=== PATIENT | male | born 1965 | race Caucasian/White ===

== ENCOUNTER 2022-05-05 12:35 | Inpatient (IN) ==
[2022-05-05] MEDS ORDERED: LORazepam 2 MG/1 ML VIAL IV STA ×3 (13:04→16:56)
[2022-05-05] MEDS ORDERED: MULTI-VITAMIN INFUSION 10 ML, THIAMINE HCL 100 MG, FOLIC ACID 1 MG in SODIUM CHLORIDE 0... IV ONE (13:06)
--- NOTE | 2022-05-05 13:06 | Emergency Department Note ---
Impression & Plan Alcohol withdrawal delirium, Encephalopathy, hypertensive, Alcoholism, chronic ED Provider Note NAME: SAAD GAMA AGE: 56 SEX: M : 1965 ARRIVES VIA: Ambulance INFORMANT: Patient, EMS personnel ED PROVIDER(S): Saad Burnham DO CHIEF COMPLAINT: Altered mental status HPI: The patient is a 56-year-old male who has a reported history of alcohol abuse who presented to the emergency department from [facility]. He was currently at [facility] for inpatient alcohol detox. The patient is very confused. History was obtained from the patient as well as the prehospital personnel. The patient's documentation from [facility] was also evaluated and reviewed. The patient denies having any abdominal pain or chest pain at this time but reportedly he did have abdominal pain prior to arrival. He denies having any trauma. He denies have any lower extremity swelling or pain. The patient was noted to have very high blood pressure. He was treated with Valium prior to arrival. He also takes naltrexone. ROS: See above HPI for pertinent positives & negatives. A total of 10 systems reviewed and were otherwise negative. PAST MEDICAL HISTORY: See Below PAST SURGICAL HISTORY: See Below FAMILY HISTORY: See Below SOCIAL HISTORY: See Below HOME MEDICATIONS: See Below ALLERGIES: See Below VITALS: See Below PHYSICAL EXAMINATION: GENERAL: The patient is obtunded. He appears very uncomfortable. He is rolling around in the bed. He answers questions intermittently. EYES: The conjunctivae are clear. The pupils are round and reactive. EARS, NOSE, MOUTH AND THROAT: The nose is without any evidence of any deformity. Mucous membranes are dry. NECK: The neck is nontender and supple. RESPIRATORY: Shallow respirations were noted. Rales were noted at the bases. CARDIOVASCULAR: Tachycardic and regular heart sounds were noted to auscultation. There is no definite murmur. GASTROINTESTINAL: The abdomen is soft. Abdomen is nontender. MUSCULOSKELETAL/EXTREMITIES: There is no evidence of gross deformity full range of motion is noted in the hips and shoulders. SKIN: Skin was warm and dry. Pedal edema was noted bilaterally. NEUROLOGIC: Patient is obtunded. He answers his name. He is moving all extremities well. He is oriented to person but not place time or situation. MEDICAL DECISION MAKING: The patient is a 56-year-old male who presented to the emergency department from [facility] for an evaluation of altered mental status. The patient's history and physical exam appear to be consistent with alcohol withdrawal. The patient was treated with benzodiazepines in the emergency department. He was also treated with a banana bag. He was treated with antihypertensive medication. I discussed the patient's laboratory and radiographic studies with him but he still continues to have very severe symptoms including hypertensive encephalopathy. He was treated with IV antihypertensive medication. Ultimately the patient was felt to be a better candidate for inpatient management. The [facility] hospitalist was notified about the patient. Triage Nursing notes reviewed. Prior medical records reviewed Vital Signs: reviewed and remarkable for hypertension and tachycardia. Differential diagnosis: Infection, hypoglycemia, electrolyte abnormalities, overdose, toxicologic, cardiac sources, intracerebral event, neurologic, trauma, as well as other pathologies. ER treatment provided: See below Diagnostics interpreted by me: ECG: EKG was obtained in the emergency department. My interpretation is sinus tachycardia 102 bpm. There is no ectopy. QTc was 471 ms. QRS duration was 92 ms. No previous tracing was available. Cardiac Monitoring: An order was placed for continuous cardiac monitoring. The monitor shows a rate of sinus tachycardia 100 bpm. Laboratory studies: As stated above and show below. Imaging studies: See below. Radiographic imaging was reviewed by myself Consultation(s): Dr. Rodriguez was notified about the patient. ED COURSE: Procedures: none Critical Care: I have personally spent greater than 45 minutes of critical care time in the direct management of this patient. This includes bedside care, interpretation of diagnostic studies, and testing, discussion with consultants, patient, and family members, and other required patient management activities. This 45 minutes is in excess of all separately billable procedures. Past Med/Surg History Medical History Alcohol withdrawal syndrome Aneurysm of descending thoracic aorta without rupture Anxiety and depression Chronic alcohol abuse Tobacco abuse Social History Smoking Status: Former smoker Second Hand Exposure: No; Do You Dip or Chew Tobacco: No; Tobacco Cessation Education Requested by Patient: No Hx Alcohol Use: No (In rehab) Hx Substance Use: Yes Last Used Substance: Unknown Preferred Language: Bruneian Communication Ability: Impaired Flight Instructor Required: No Beliefs That Will Affect Care: None Current Living Situation: Rehab Current Living Situation Comment: Patient transferred from [facility] Other Information That Helps Us Care for You: No Feels Safe at Home: Declines to Answer Assistive Devices: None Allergies Allergies Allergy/AdvReac Type Severity Reaction Status Date / Time latex Allergy Unknown Verified 05/05/22 17:51 Penicillins Allergy Unknown Verified 05/05/22 17:51 Home Meds Home Medications Medication Instructions Recorded Confirmed buprenorphine 2 mg-naloxone 0.5 mg 1 film sublingual BID 05/05/22 05/05/22 sublingual film clonidine HCl 0.1 mg tablet 0.1 mg PO TID PRN .LOS 05/05/22 05/05/22 cyanocobalamin (vitamin B-12) 1,000 mcg PO DAILY 05/05/22 05/05/22 1,000 mcg tablet (Vitamin B-12) diazepam 5 mg tablet (Valium) 5 mg PO .NOW 05/05/22 05/05/22 escitalopram oxalate 10 mg tablet 10 mg PO DAILY 05/05/22 05/05/22 (Lexapro) folic acid 1 mg tablet 1 mg PO DAILY 05/05/22 05/05/22 hydroxyzine pamoate 50 mg capsule 50 mg PO TID PRN LOS 05/05/22 05/05/22 (Vistaril) metformin 500 mg tablet 500 mg PO DIRECTED 05/05/22 05/05/22 multivitamin 1 tab PO DAILY 05/05/22 05/05/22 naltrexone 50 mg tablet 50 mg PO DAILY 05/05/22 05/05/22 thiamine HCl (vitamin B1) 100 mg 100 mg PO DAILY 05/05/22 05/05/22 tablet valsartan 80 mg tablet 80 mg PO DAILY 05/05/22 05/05/22 Results & Data (ED) Vital Signs Vital Signs - 24 hr 05/05/22 12:45 05/05/22 12:49 05/05/22 15:24 Temperature 36.9 C Temperature Source Oral Pulse Rate 108 H 105 H Pulse Rate [Right Finger] Pulse Rate from SpO2 Sensor Pulse Rhythm Regular Regular Pulse Rhythm [Right Finger] Pulse Strength Normal Pulse Strength [Right Finger] Respiratory Rate 19 Respiratory Effort / Characteristics Non-Labored Spontaneous Respiratory Depth Normal Respiratory Pattern Blood Pressure 208/134 H Blood Pressure [Right Arm] Blood Pressure Mean 158 Blood Pressure Mean [Right Arm] Blood Pressure Position Lying Pulse Oximetry 99 98 Oxygen Delivery Method Room Air Room Air Sepsis New/Unexplained Change in Mental Status Yes Sepsis Action Taken by Nursing No Action Required 05/05/22 12:48 05/05/22 12:50 05/05/22 13:00 Temperature Temperature Source Pulse Rate 105 H 104 H 107 H Pulse Rate [Right Finger] Pulse Rate from SpO2 Sensor 103 H 105 H 108 H Pulse Rhythm Pulse Rhythm [Right Finger] Pulse Strength Pulse Strength [Right Finger] Respiratory Rate 30 H 27 H 23 Respiratory Effort / Characteristics Respiratory Depth Respiratory Pattern Blood Pressure Blood Pressure [Right Arm] Blood Pressure Mean Blood Pressure Mean [Right Arm] Blood Pressure Position Pulse Oximetry 96 97 98 Oxygen Delivery Method Sepsis New/Unexplained Change in Mental Status Sepsis Action Taken by Nursing 05/05/22 13:10 05/05/22 13:20 05/05/22 13:30 Temperature Temperature Source Pulse Rate 103 H 106 H 102 H Pulse Rate [Right Finger] Pulse Rate from SpO2 Sensor 103 H 105 H 102 H Pulse Rhythm Pulse Rhythm [Right Finger] Pulse Strength Pulse Strength [Right Finger] Respiratory Rate 20 21 18 Respiratory Effort / Characteristics Respiratory Depth Respiratory Pattern Blood Pressure Blood Pressure [Right Arm] Blood Pressure Mean Blood Pressure Mean [Right Arm] Blood Pressure Position Pulse Oximetry 98 97 98 Oxygen Delivery Method Sepsis New/Unexplained Change in Mental Status Sepsis Action Taken by Nursing 05/05/22 13:40 05/05/22 13:50 05/05/22 14:00 Temperature Temperature Source Pulse Rate 103 H 103 H 101 H Pulse Rate [Right Finger] Pulse Rate from SpO2 Sensor 102 H 103 H 99 H Pulse Rhythm Pulse Rhythm [Right Finger] Pulse Strength Pulse Strength [Right Finger] Respiratory Rate 16 22 23 Respiratory Effort / Characteristics Respiratory Depth Respiratory Pattern Blood Pressure Blood Pressure [Right Arm] Blood Pressure Mean Blood Pressure Mean [Right Arm] Blood Pressure Position Pulse Oximetry 96 95 96 Oxygen Delivery Method Sepsis New/Unexplained Change in Mental Status Sepsis Action Taken by Nursing 05/05/22 14:10 05/05/22 14:20 05/05/22 14:30 Temperature Temperature Source Pulse Rate Pulse Rate [Right Finger] Pulse Rate from SpO2 Sensor 102 H 103 H Pulse Rhythm Pulse Rhythm [Right Finger] Pulse Strength Pulse Strength [Right Finger] Respiratory Rate 33 H 21 26 H Respiratory Effort / Characteristics Respiratory Depth Respiratory Pattern Blood Pressure Blood Pressure [Right Arm] Blood Pressure Mean Blood Pressure Mean [Right Arm] Blood Pressure Position Pulse Oximetry 96 96 Oxygen Delivery Method Sepsis New/Unexplained Change in Mental Status Sepsis Action Taken by Nursing 05/05/22 14:34 05/05/22 14:34 05/05/22 15:15 Temperature Temperature Source Pulse Rate Pulse Rate [Right Finger] Pulse Rate from SpO2 Sensor Pulse Rhythm Pulse Rhythm [Right Finger] Pulse Strength Pulse Strength [Right Finger] Respiratory Rate 20 Respiratory Effort / Characteristics Respiratory Depth Respiratory Pattern Blood Pressure 197/140 H 173/114 H Blood Pressure [Right Arm] Blood Pressure Mean 159 133 Blood Pressure Mean [Right Arm] Blood Pressure Position Pulse Oximetry Oxygen Delivery Method Sepsis New/Unexplained Change in Mental Status Sepsis Action Taken by Nursing 05/05/22 15:20 05/05/22 15:30 05/05/22 15:40 Temperature Temperature Source Pulse Rate 103 H Pulse Rate [Right Finger] Pulse Rate from SpO2 Sensor 105 H Pulse Rhythm Pulse Rhythm [Right Finger] Pulse Strength Pulse Strength [Right Finger] Respiratory Rate 24 18 Respiratory Effort / Characteristics Respiratory Depth Respiratory Pattern Blood Pressure 193/140 H Blood Pressure [Right Arm] Blood Pressure Mean 157 Blood Pressure Mean [Right Arm] Blood Pressure Position Pulse Oximetry 99 Oxygen Delivery Method Sepsis New/Unexplained Change in Mental Status Sepsis Action Taken by Nursing 05/05/22 15:40 05/05/22 15:45 05/05/22 15:45 Temperature Temperature Source Pulse Rate 105 H 100 H Pulse Rate [Right Finger] Pulse Rate from SpO2 Sensor 103 H 108 H Pulse Rhythm Pulse Rhythm [Right Finger] Pulse Strength Pulse Strength [Right Finger] Respiratory Rate 31 H 20 Respiratory Effort / Characteristics Respiratory Depth Respiratory Pattern Blood Pressure 192/154 H Blood Pressure [Right Arm] Blood Pressure Mean 166 Blood Pressure Mean [Right Arm] Blood Pressure Position Pulse Oximetry 97 95 Oxygen Delivery Method Sepsis New/Unexplained Change in Mental Status Sepsis Action Taken by Nursing 05/05/22 15:50 05/05/22 15:55 05/05/22 15:55 Temperature Temperature Source Pulse Rate 105 H 104 H Pulse Rate [Right Finger] Pulse Rate from SpO2 Sensor 106 H 103 H Pulse Rhythm Pulse Rhythm [Right Finger] Pulse Strength Pulse Strength [Right Finger] Respiratory Rate 13 17 Respiratory Effort / Characteristics Respiratory Depth Respiratory Pattern Blood Pressure 181/129 H Blood Pressure [Right Arm] Blood Pressure Mean 146 Blood Pressure Mean [Right Arm] Blood Pressure Position Pulse Oximetry 97 99 Oxygen Delivery Method Sepsis New/Unexplained Change in Mental Status Sepsis Action Taken by Nursing 05/05/22 16:00 05/05/22 16:10 05/05/22 16:17 Temperature Temperature Source Pulse Rate 105 H 104 H Pulse Rate [Right Finger] Pulse Rate from SpO2 Sensor 105 H 103 H Pulse Rhythm Pulse Rhythm [Right Finger] Pulse Strength Pulse Strength [Right Finger] Respiratory Rate 17 16 Respiratory Effort / Characteristics Respiratory Depth Respiratory Pattern Blood Pressure 180/132 H Blood Pressure [Right Arm] Blood Pressure Mean 148 Blood Pressure Mean [Right Arm] Blood Pressure Position Pulse Oximetry 98 98 Oxygen Delivery Method Sepsis New/Unexplained Change in Mental Status Sepsis Action Taken by Nursing 05/05/22 16:17 05/05/22 16:20 05/05/22 14:44 Temperature 36.8 C Temperature Source Oral Pulse Rate 97 H 100 H Pulse Rate [Right Finger] 103 H Pulse Rate from SpO2 Sensor 97 H 100 H Pulse Rhythm Pulse Rhythm [Right Finger] Regular Pulse Strength Pulse Strength [Right Finger] Normal Respiratory Rate 16 13 19 Respiratory Effort / Characteristics Non-Labored Spontaneous Respiratory Depth Normal Respiratory Pattern Regular Blood Pressure Blood Pressure [Right Arm] 219/130 H Blood Pressure Mean Blood Pressure Mean [Right Arm] 159 Blood Pressure Position Pulse Oximetry 99 99 98 Oxygen Delivery Method Room Air Sepsis New/Unexplained Change in Mental Status Sepsis Action Taken by Nursing 05/05/22 16:51 Temperature Temperature Source Pulse Rate 102 H Pulse Rate [Right Finger] Pulse Rate from SpO2 Sensor Pulse Rhythm Pulse Rhythm [Right Finger] Pulse Strength Pulse Strength [Right Finger] Respiratory Rate Respiratory Effort / Characteristics Respiratory Depth Respiratory Pattern Blood Pressure Blood Pressure [Right Arm] Blood Pressure Mean Blood Pressure Mean [Right Arm] Blood Pressure Position Pulse Oximetry Oxygen Delivery Method Sepsis New/Unexplained Change in Mental Status Sepsis Action Taken by [facility] Medications Current Medication List: was personally reviewed by la Laboratory Data Attestation: I reviewed the patient's lab results. 05/05/22 12:50 05/05/22 12:50 Lab Results 05/05/22 05/05/22 05/05/22 Range/Units 12:50 12:50 12:50 WBC 9.10 (4.8-10.8) K/ul RBC 4.28 L (4.70-6.10) M/uL Hgb 14.0 (14.0-18.0) g/dl Hct 41.0 L (42.0-52.0) % MCV 95.8 (80.0-100.0) fL MCH 32.7 (25.0-34.0) pg MCHC 34.1 (32.0-36.0) g/dL RDW Std Deviation 44.1 (36.4-46.3) fL RDW Coeff of Josiah 12.5 (11.5-14.5) % Plt Count 274 (130-400) K/uL MPV 10.8 (9.4-12.4) fL Immature Gran % (Auto) 0.4 % Neut % (Auto) 77.8 % Lymph % (Auto) 12.3 % [place] % (Auto) 7.3 % Eos % (Auto) 0.8 % Baso % (Auto) 1.4 % Neut # (Auto) 7.08 H (1.40-6.50) K/uL Lymph # (Auto) 1.12 L (1.2-3.4) K/uL [place] # (Auto) 0.66 H (0.11-0.59) K/uL Eos # (Auto) 0.07 (0-0.50) K/uL Baso # (Auto) 0.13 (0-0.2) K/uL Immature Gran # (Auto) 0.04 (0.01-0.20) K/uL PT 10.6 (9.0-12.0) Seconds INR 1.0 (0.9-1.1) APTT 27.2 (21.0-31.0) Seconds PTT Ratio 1.0 Sodium 141 (136-145) mmol/L Potassium 3.9 (3.5-5.1) mmol/L Chloride 106 (98-107) mmol/L Carbon Dioxide 30 (21-32) mmol/L Anion Gap 5 (3-11) BUN 14 (6-23) mg/dl Creatinine 0.99 (0.6-1.4) mg/dl Est Cr Clr Drug Dosing 101.3 ml/min Est GFR ( Amer) 97.6 ml/min Est GFR (Non-Af Amer) 84.2 ml/min BUN/Creatinine Ratio 14.1 (10-20) Glucose 169 H (70-99(Fasting)) mg/dl POC Glucose (70-99) mg/dl Calcium 9.8 (8.5-10.1) mg/dl Magnesium 2.0 (1.7-2.4) mg/dl Total Bilirubin 0.4 (0.2-1.0) mg/dl AST 34 (13-39) U/L ALT 44 (7-52) U/L Alkaline Phosphatase 89 (34-104) U/L Total Creatine Kinase 74 (30-223) U/L Troponin I High Sens 9.3 (0-20) pg/ml Total Protein 7.8 (6.0-8.3) gm/dl Albumin 4.3 (3.4-5.0) gm/dl Globulin 3.5 (2.5-4.0) gm/dl Albumin/Globulin Ratio 1.2 (0.9-2) Lipase 36 (11-82) U/L Urine Color Urine Appearance (Clear) Urine pH (4.5-7.5) Ur Specific [place] (1.000-1.030) Urine Protein (Negative) Urine Glucose (UA) (Negative) Urine Ketones (Negative) Urine Blood (Negative) Urine Nitrite (Negative) Urine Bilirubin (Negative) Urine Urobilinogen (Negative) Ur Leukocyte Esterase (Negative) Urine WBC (Auto) (0-5) /hpf Urine RBC (Auto) (0-4) /hpf U Hyaline Cast (Auto) (0-5) /lpf U Epithel Cells (Auto) (0-5) /lpf Urine Bacteria (Auto) (Negative) Salicylates (3.0-30) mg/dl Urine Opiates Screen (Neg) Ur Methadone, Qual (Neg) Acetaminophen (10-30) ug/ml Urine Barbiturates (Neg) Ur Phencyclidine (PCP) (Neg) U Amphetamin/Meth Scrn (Neg) MDMA (Ecstasy) Screen (Neg) U Benzodiazepines Scrn (Neg) Ur Cocaine Metabolite (Neg) U Marijuana (THC) Screen (Neg) Ethyl Alcohol mg/dL (<10.0) mg/dl SARS-CoV-2, RNA, NAAT (NEGATIVE) 05/05/22 05/05/22 05/05/22 Range/Units 12:50 12:50 12:55 WBC (4.8-10.8) K/ul RBC (4.70-6.10) M/uL Hgb (14.0-18.0) g/dl Hct (42.0-52.0) % MCV (80.0-100.0) fL MCH (25.0-34.0) pg MCHC (32.0-36.0) g/dL RDW Std Deviation (36.4-46.3) fL RDW Coeff of Josiah (11.5-14.5) % Plt Count (130-400) K/uL MPV (9.4-12.4) fL Immature Gran % (Auto) % Neut % (Auto) % Lymph % (Auto) % [place] % (Auto) % Eos % (Auto) % Baso % (Auto) % Neut # (Auto) (1.40-6.50) K/uL Lymph # (Auto) (1.2-3.4) K/uL [place] # (Auto) (0.11-0.59) K/uL Eos # (Auto) (0-0.50) K/uL Baso # (Auto) (0-0.2) K/uL Immature Gran # (Auto) (0.01-0.20) K/uL PT (9.0-12.0) Seconds INR (0.9-1.1) APTT (21.0-31.0) Seconds PTT Ratio Sodium (136-145) mmol/L Potassium (3.5-5.1) mmol/L Chloride (98-107) mmol/L Carbon Dioxide (21-32) mmol/L Anion Gap (3-11) BUN (6-23) mg/dl Creatinine (0.6-1.4) mg/dl Est Cr Clr Drug Dosing ml/min Est GFR ( Amer) ml/min Est GFR (Non-Af Amer) ml/min BUN/Creatinine Ratio (10-20) Glucose (70-99(Fasting)) mg/dl POC Glucose 166 H (70-99) mg/dl Calcium (8.5-10.1) mg/dl Magnesium (1.7-2.4) mg/dl Total Bilirubin (0.2-1.0) mg/dl AST (13-39) U/L ALT (7-52) U/L Alkaline Phosphatase (34-104) U/L Total Creatine Kinase (30-223) U/L Troponin I High Sens (0-20) pg/ml Total Protein (6.0-8.3) gm/dl Albumin (3.4-5.0) gm/dl Globulin (2.5-4.0) gm/dl Albumin/Globulin Ratio (0.9-2) Lipase (11-82) U/L Urine Color Urine Appearance (Clear) Urine pH (4.5-7.5) Ur Specific [place] (1.000-1.030) Urine Protein (Negative) Urine Glucose (UA) (Negative) Urine Ketones (Negative) Urine Blood (Negative) Urine Nitrite (Negative) Urine Bilirubin (Negative) Urine Urobilinogen (Negative) Ur Leukocyte Esterase (Negative) Urine WBC (Auto) (0-5) /hpf Urine RBC (Auto) (0-4) /hpf U Hyaline Cast (Auto) (0-5) /lpf U Epithel Cells (Auto) (0-5) /lpf Urine Bacteria (Auto) (Negative) Salicylates < 3.0 L (3.0-30) mg/dl Urine Opiates Screen (Neg) Ur Methadone, Qual (Neg) Acetaminophen < 3 L (10-30) ug/ml Urine Barbiturates (Neg) Ur Phencyclidine (PCP) (Neg) U Amphetamin/Meth Scrn (Neg) MDMA (Ecstasy) Screen (Neg) U Benzodiazepines Scrn (Neg) Ur Cocaine Metabolite (Neg) U Marijuana (THC) Screen (Neg) Ethyl Alcohol mg/dL < 10.0 (<10.0) mg/dl SARS-CoV-2, RNA, NAAT (NEGATIVE) 05/05/22 05/05/22 05/05/22 Range/Units 13:30 15:20 15:20 WBC (4.8-10.8) K/ul RBC (4.70-6.10) M/uL Hgb (14.0-18.0) g/dl Hct (42.0-52.0) % MCV (80.0-100.0) fL MCH (25.0-34.0) pg MCHC (32.0-36.0) g/dL RDW Std Deviation (36.4-46.3) fL RDW Coeff of Josiah (11.5-14.5) % Plt Count (130-400) K/uL MPV (9.4-12.4) fL Immature Gran % (Auto) % Neut % (Auto) % Lymph % (Auto) % [place] % (Auto) % Eos % (Auto) % Baso % (Auto) % Neut # (Auto) (1.40-6.50) K/uL Lymph # (Auto) (1.2-3.4) K/uL [place] # (Auto) (0.11-0.59) K/uL Eos # (Auto) (0-0.50) K/uL Baso # (Auto) (0-0.2) K/uL Immature Gran # (Auto) (0.01-0.20) K/uL PT (9.0-12.0) Seconds INR (0.9-1.1) APTT (21.0-31.0) Seconds PTT Ratio Sodium (136-145) mmol/L Potassium (3.5-5.1) mmol/L Chloride (98-107) mmol/L Carbon Dioxide (21-32) mmol/L Anion Gap (3-11) BUN (6-23) mg/dl Creatinine (0.6-1.4) mg/dl Est Cr Clr Drug Dosing ml/min Est GFR ( Amer) ml/min Est GFR (Non-Af Amer) ml/min BUN/Creatinine Ratio (10-20) Glucose (70-99(Fasting)) mg/dl POC Glucose (70-99) mg/dl Calcium (8.5-10.1) mg/dl Magnesium (1.7-2.4) mg/dl Total Bilirubin (0.2-1.0) mg/dl AST (13-39) U/L ALT (7-52) U/L Alkaline Phosphatase (34-104) U/L Total Creatine Kinase (30-223) U/L Troponin I High Sens (0-20) pg/ml Total Protein (6.0-8.3) gm/dl Albumin (3.4-5.0) gm/dl Globulin (2.5-4.0) gm/dl Albumin/Globulin Ratio (0.9-2) Lipase (11-82) U/L Urine Color Yellow Urine Appearance Cloudy A (Clear) Urine pH 6.5 (4.5-7.5) Ur Specific [place] 1.011 (1.000-1.030) Urine Protein Negative (Negative) Urine Glucose (UA) Negative (Negative) Urine Ketones Trace H (Negative) Urine Blood Negative (Negative) Urine Nitrite Negative (Negative) Urine Bilirubin Negative (Negative) Urine Urobilinogen Negative (Negative) Ur Leukocyte Esterase Negative (Negative) Urine WBC (Auto) 1-5 (0-5) /hpf Urine RBC (Auto) 0-4 (0-4) /hpf U Hyaline Cast (Auto) 1-5 (0-5) /lpf U Epithel Cells (Auto) 0-5 (0-5) /lpf Urine Bacteria (Auto) Negative (Negative) Salicylates (3.0-30) mg/dl Urine Opiates Screen Neg (Neg) Ur Methadone, Qual Neg (Neg) Acetaminophen (10-30) ug/ml Urine Barbiturates Neg (Neg) Ur Phencyclidine (PCP) Neg (Neg) U Amphetamin/Meth Scrn Neg (Neg) MDMA (Ecstasy) Screen Neg (Neg) U Benzodiazepines Scrn Pos H (Neg) Ur Cocaine Metabolite Neg (Neg) U Marijuana (THC) Screen Neg (Neg) Ethyl Alcohol mg/dL (<10.0) mg/dl SARS-CoV-2, RNA, NAAT NEGATIVE (NEGATIVE) Administered Medications Enoxaparin Sodium (Enoxaparin Inj 40 Mg/0.4 Ml Syr) 40 mg SQ QPM [facility] Stop: 06/04/22 22:29 Last Admin: 05/05/22 23:33 Dose: Not Given Documented By: ALBERTO Hydralazine HCl (Hydralazine Hcl 20 Mg/Ml Vial) 10 mg IV Q4H PRN PRN Reason: sBP > 160 Stop: 06/04/22 20:40 Last Admin: 05/06/22 04:00 Dose: 10 mg Documented By: ALBERTO Lactated Ringer's (Lr) 1,000 mls @ 125 mls/hr IV .Q8H [facility] Stop: 06/04/22 20:44 Last Admin: 05/06/22 05:47 Dose: 125 mls/hr Documented By: Infusion: 05/06/22 05:38 Dose: 125 mls/hr Documented By: Admin: 05/05/22 21:38 Dose: 125 mls/hr Documented By: ALBERTO Thiamine HCl 500 mg/ Sodium (Chloride) 55 mls @ 210 mls/hr IV Q8H [facility] Stop: 05/07/22 21:14 Last Infusion: 05/06/22 05:26 Dose: 0 mls/hr Documented By: Admin: 05/06/22 04:41 Dose: 210 mls/hr Documented By: Infusion: 05/05/22 22:01 Dose: 0 mls/hr Documented By: Admin: 05/05/22 21:40 Dose: 210 mls/hr Documented By: ALBERTO Insulin Aspart (Insulin Aspart Per Unit) 0 units SC Q6 [facility] Stop: 06/05/22 00:00 Last Admin: 05/06/22 06:39 Dose: 1 units Documented By: ALBERTO Co-signed By: BRYNN Admin: 05/06/22 00:03 Dose: 1 units Documented By: ALBERTO Co-signed By: BRYNN(2) Lorazepam (Lorazepam 2 Mg/1 Ml Vial) 1 mg IV Q4H PRN PRN Reason: Anxiety/Agitation Stop: 06/04/22 22:46 Last Admin: 05/06/22 05:50 Dose: 1 mg Documented By: Admin: 05/05/22 23:45 Dose: 1 mg Documented By: ALBERTO Discontinued Medications Hydralazine HCl (Hydralazine Hcl 20 Mg/Ml Vial) 10 mg IV NOW STA Stop: 05/05/22 14:33 Last Admin: 05/05/22 15:18 Dose: 10 mg Documented By: BEAR Sodium Chloride (Nss 1000ml) 1,000 mls @ 999 mls/hr IV .Q1H1M [facility] Stop: 05/05/22 14:15 Last Infusion: 05/05/22 16:42 Dose: 0 mls/hr Documented By: Admin: 05/05/22 14:00 Dose: 999 mls/hr Documented By: BEAR Multivitamins 10 ml/ Thiamine HCl 100 mg/ Folic Acid 1 mg/Sodium Chloride 1,011.2 mls @ 1,011.2 mls/hr IV .Q1H ONE Stop: 05/05/22 14:05 Last Infusion: 05/05/22 16:42 Dose: 0 mls/hr Documented By: Admin: 05/05/22 13:41 Dose: 1,011.2 mls/hr Documented By: BEAR Nicardipine HCl 25 mg/ Sodium (Chloride) 250 mls @ 75 mls/hr IV .Q3H20M ALMA; Protocol Stop: 06/04/22 15:59 Last Titration: 05/05/22 19:56 Dose: 0 mg/hr, 0 mls/hr Documented By: Titration: 05/05/22 16:47 Dose: 7.5 mg/hr, 75 mls/hr Documented By: Admin: 05/05/22 16:23 Dose: 5 mg/hr, 50 mls/hr Documented By: BEAR Co-signed By: CARLOS Thiamine HCl 500 mg/ Sodium (Chloride) 55 mls @ 210 mls/hr IV NOW STA Stop: 05/05/22 17:30 Last Infusion: 05/05/22 19:08 Dose: 0 mls/hr Documented By: Admin: 05/05/22 18:47 Dose: 210 mls/hr Documented By: BEAR Nicardipine HCl 25 mg/ Sodium (Chloride) 250 mls @ 50 mls/hr IV .Q5H ALMA; Protocol Stop: 06/04/22 18:14 Last Admin: 05/05/22 18:55 Dose: Not Given Documented By: BEAR Influenza Virus Vaccine Quadrival (Fluarix Quadrivalent 0.5 Ml Syr) 0.5 ml IM .ONCE ONE Stop: 05/05/22 20:34 Last Admin: 05/05/22 20:43 Dose: Not Given Documented By: ALBERTO Labetalol HCl (Labetalol Hcl Iv 5 Mg/Ml 20ml) 10 mg IV NOW STA Stop: 05/05/22 17:33 Last Admin: 05/05/22 17:58 Dose: 10 mg Documented By: PIERCE Co-signed By: BEAR Lorazepam (Lorazepam 2 Mg/1 Ml Vial) 1 mg IV NOW STA Stop: 05/05/22 13:05 Last Admin: 05/05/22 13:19 Dose: 1 mg Documented By: BEAR Lorazepam (Lorazepam 2 Mg/1 Ml Vial) 1 mg IV NOW STA Stop: 05/05/22 14:33 Last Admin: 05/05/22 15:20 Dose: 1 mg Documented By: BEAR Lorazepam (Lorazepam 2 Mg/1 Ml Vial) 1 mg IV NOW STA Stop: 05/05/22 16:57 Last Admin: 05/05/22 17:12 Dose: 1 mg Documented By: BEAR Imaging Data Radiologist's Impression: Abdomen/Pelvis CT 05/05/22 13:04 CT SCAN OF THE ABDOMEN AND PELVIS WITHOUT IV CONTRAST CLINICAL HISTORY: Generalized abdominal pain. COMPARISON STUDY: No priors. TECHNIQUE: CT scan of the abdomen and pelvis is performed from the lung bases to the proximal femora. Images are reviewed in the axial, sagittal, and coronal planes. IV contrast was not administered for this examination as per the referring clinician. Note that the examination was performed and significantly suboptimal fashion without oral and IV contrast. The examination is also significantly degraded by motion artifact, as well as by streak artifact from the arms which could not be elevated above the abdomen. The patient was scanned twice in an effort to improve image quality. A dose lowering technique was utilized adhering to the principles of ALARA. CT DOSE: 2341.07 mGycm FINDINGS: Lung bases: The heart is normal in size and without pericardial effusion. The pulmonary arteries are densely calcified. The lung bases are clear. A small hiatal hernia is noted. Liver: The unenhanced liver is enlarged, measuring 21.7 cm in length. The liver demonstrates diffuse decreased attenuation indicating steatosis. Fatty sparing is seen adjacent to the gallbladder fossa. There is no intrahepatic biliary ductal dilatation. Gallbladder: Unremarkable. Spleen: Normal in size and attenuation. Pancreas: Unremarkable. Adrenal glands: Unremarkable. Kidneys: The unenhanced kidneys are normal in size and without hydronephrosis. There are no renal calculi identified. There is no evidence of contour deforming renal mass lesion. Abdominal vasculature: There is mild/moderate atherosclerotic calcification and ectasia of the abdominal aorta. Bowel: There is no bowel obstruction. Mild inflammatory changes seen around the small bowel loops and there is trace interloop fluid. No pneumatosis intestinalis or portal venous gas is identified. The appendix is well- visualized and normal. Peritoneum: There is trace perihepatic ascites, as well as trace free fluid in the pelvis. No intraperitoneal free air is seen. There is a fat-containing umbilical hernia. Lymphadenopathy: None. Pelvic viscera: The prostate gland is mildly enlarged and heterogeneous. The bladder is distended but otherwise normal in appearance. Skeletal structures: There is mild lumbosacral spondylosis and scoliosis. No lytic or blastic lesions are seen. Sclerotic change is noted in the sacroiliac joints. IMPRESSION: 1. Significantly suboptimal examination without oral and IV contrast. The examination is also significantly degraded by streak and motion artifact. 2. Inflammatory change is seen around the small bowel loops with trace interloop fluid. The appearance suggests a nonspecific enteritis and clinical correlation required. 3. There is no bowel obstruction. 4. No intraperitoneal free air is seen. There is no pneumatosis intestinalis or portal venous gas. 5. Trace abdominopelvic ascites. 6. Hepatomegaly and hepatic steatosis. 7. Advanced coronary artery calcification. 8. Bladder distention. 9. Additional findings as above. ACT 112: Negative or not required by law. Electronically signed by: Mak Baeza M.D. 05/05/2022 3:22 PM Chest X-Ray 05/05/22 13:04 XR chest 1V portable CLINICAL HISTORY: Altered mental status. COMPARISON STUDY: No previous studies for comparison. FINDINGS: No pneumothorax or pleural effusion is noted. Mild cardiomegaly without evidence for pulmonary edema. No consolidation is identified. Patient is mildly rotated. IMPRESSION: No acute cardiopulmonary findings. ACT 112: Negative or not required by law. Electronically signed by: Cornelio Palencia M.D. 05/05/2022 2:[address] 05/05/22 13:04 CT head/brain wo con CLINICAL HISTORY: 56 years-old Male with vbg. Acute dizziness TECHNIQUE: Multiple axial CT images of the head were obtained without contrast. A dose lowering technique was utilized adhering to the principles of ALARA. CT DOSE: 1812.68 mGycm COMPARISON: None. FINDINGS: No acute intracranial hemorrhage, midline shift, intracranial mass, hydrocephalus, territorial ischemia or abnormal extra-axial collection. Motion degraded exam. The calvarium is intact. The paranasal sinuses, mastoid air cells, and middle ear cavities are clear. IMPRESSION: No acute intracranial abnormality identified. ACT 112: Negative or not required by law. The above report was generated using voice recognition software. It may contain grammatical, syntax or spelling errors. Electronically signed by: Amilcar Marino M.D. 05/05/2022 3:09 PM Discharge Plan Visit Data Chief Complaint: Altered Mental Status Stated Complaint: CONFUSION ED Provider: Saad Burnham Discharge Problem: Alcohol withdrawal delirium, Encephalopathy, hypertensive, Alcoholism, chronic Patient Disposition: Admitted As Inpatient Discharge Instructions Interventions: ED Discharge Assessment Last Done: 05/05/22 18:54
[2022-05-05] MEDS ORDERED: SODIUM CHLORIDE 0.9% 1000ML 1,000 ML IV SCH (13:15)
[2022-05-05 13:36] LABS: Basophils # (auto) 0.13 K/uL (0-0.2); Basophils % (auto) 1.4 %; Eosinophils # (auto) 0.07 K/uL (0-0.50); Eosinophils % (auto) 0.8 %; Immature Granulocytes # (auto) 0.04 K/uL (0.01-0.20); Immature Granulocytes % (auto) 0.4 %; Lymphocytes # (auto) 1.12 K/uL (1.2-3.4); Lymphocytes % (auto) 12.3 %; Mean Corpuscular Hemoglobin 32.7 pg (25.0-34.0); Mean Corpuscular Hgb Conc 34.1 g/dL (32.0-36.0); Mean Corpuscular Volume 95.8 fL (80.0-100.0); Mean Platelet Volume 10.8 fL (9.4-12.4); Monocytes # (auto) 0.66 K/uL (0.11-0.59); Monocytes % (auto) 7.3 %; Neutrophils # (auto) 7.08 K/uL (1.40-6.50); Neutrophils % (auto) 77.8 %; Platelet Count 274 K/uL (130-400); RDW Coefficient of Variation 12.5 % (11.5-14.5); RDW Standard Deviation 44.1 fL (36.4-46.3); Red Blood Count 4.28 M/uL (4.70-6.10)
[2022-05-05 13:51] LABS: Albumin Globulin Ratio 1.2 (0.9-2); Albumin Level 4.3 gm/dl (3.4-5.0); BUN Creatinine Ratio 14.1 (10-20); Bilirubin,Total 0.4 mg/dl (0.2-1.0); Calcium 9.8 mg/dl (8.5-10.1); Creatinine Clr Calc Pharmacy 101.3 ml/min; Est GFR (African American) 97.6 ml/min; Est GFR (Non-African American) 84.2 ml/min; Globulin 3.5 gm/dl (2.5-4.0); Potassium 3.9 mmol/L (3.5-5.1); Total Protein 7.8 gm/dl (6.0-8.3)
[2022-05-05 13:52] LABS: Acetaminophen < 3 ug/ml (10-30); Salicylate < 3.0 mg/dl (3.0-30)
[2022-05-05 13:55] LABS: Troponin I High Sensitivity 9.3 pg/ml (0-20)
[2022-05-05 14:05] LABS: Partial Thromboplastin Time 27.2 Seconds (21.0-31.0); Prothrombin Time 10.6 Seconds (9.0-12.0)
--- NOTE | 2022-05-05 14:23 | XRay Report ---
XR chest 1V portable CLINICAL HISTORY: Altered mental status. COMPARISON STUDY: No previous studies for comparison. FINDINGS: No pneumothorax or pleural effusion is noted. Mild cardiomegaly without evidence for pulmon lisa edema. No consolidation is identified. Patient is mildly rotated. IMPRESSION: No acute cardiopulmonary findings. ACT 112: Negative or not required by law. Electronically signed by: Cornelio Palencia M.D. 05/05/2022 2:21 PM
[2022-05-05] MEDS ORDERED: hydrALAZINE HCL 20 MG/ML VIAL IV STA (14:32)
--- NOTE | 2022-05-05 15:10 | CT Scan Report ---
CT head/brain wo con CLINICAL HISTORY: 56 years-old Male with vbg. Acute dizziness TECHNIQUE: Multiple axial CT images of the head were obtained without contrast. A dose lowering tech nique was utilized adhering to the principles of ALARA. CT DOSE: 1812.68 mGycm COMPARISON: None. FINDINGS: No acute intracranial hemorrhage, midline shift, intracranial mass, hydrocephalus, territorial ischem ia or abnormal extra-axial collection. Motion degraded exam. The calvarium is intact. The paranasal sinuses, mastoid air cells, and middle ear cavities are clear . IMPRESSION: No acute intracranial abnormality identified. ACT 112: Negative or not required by law. The above report was generated using voice recognition software. It may contain grammatical, syntax o r spelling errors. Electronically signed by: Amilcar Marino M.D. 05/05/2022 3:09 PM
--- NOTE | 2022-05-05 15:23 | CT Scan Report ---
CT SCAN OF THE ABDOMEN AND PELVIS WITHOUT IV CONTRAST CLINICAL HISTORY: Generalized abdominal pain. COMPARISON STUDY: No priors. TECHNIQUE: CT scan of the abdomen and pelvis is performed from the lung bases to the proximal femora. Images are reviewed in the axial, sagittal, and coronal planes. IV contrast was not administered for this examination as per the referring clinician. Note that the examination was performed and signifi cantly suboptimal fashion without oral and IV contrast. The examination is also significantly degrade d by motion artifact, as well as by streak artifact from the arms which could not be elevated above t he abdomen. The patient was scanned twice in an effort to improve image quality. A dose lowering tech nique was utilized adhering to the principles of ALARA. CT DOSE: 2341.07 mGycm FINDINGS: Lung bases: The heart is normal in size and without pericardial effusion. The pulmonary arteries are densely calcified. The lung bases are clear. A small hiatal hernia is noted. Liver: The unenhanced liver is enlarged, measuring 21.7 cm in length. The liver demonstrates diffuse decreased attenuation indicating steatosis. Fatty sparing is seen adjacent to the gallbladder fossa. There is no intrahepatic biliary ductal dilatation. Gallbladder: Unremarkable. Spleen: Normal in size and attenuation. Pancreas: Unremarkable. Adrenal glands: Unremarkable. Kidneys: The unenhanced kidneys are normal in size and without hydronephrosis. There are no renal jake culi identified. There is no evidence of contour deforming renal mass lesion. Abdominal vasculature: There is mild/moderate atherosclerotic calcification and ectasia of the abdomi nal aorta. Bowel: There is no bowel obstruction. Mild inflammatory changes seen around the small bowel loops and there is trace interloop fluid. No pneumatosis intestinalis or portal venous gas is identified. The appendix is well-visualized and normal. Peritoneum: There is trace perihepatic ascites, as well as trace free fluid in the pelvis. No intrape ritoneal free air is seen. There is a fat-containing umbilical hernia. Lymphadenopathy: None. Pelvic viscera: The prostate gland is mildly enlarged and heterogeneous. The bladder is distended but otherwise normal in appearance. Skeletal structures: There is mild lumbosacral spondylosis and scoliosis. No lytic or blastic lesions are seen. Sclerotic change is noted in the sacroiliac joints. IMPRESSION: 1. Significantly suboptimal examination without oral and IV contrast. The examination is also signifi cantly degraded by streak and motion artifact. 2. Inflammatory change is seen around the small bowel loops with trace interloop fluid. The appearanc e suggests a nonspecific enteritis and clinical correlation required. 3. There is no bowel obstruction. 4. No intraperitoneal free air is seen. There is no pneumatosis intestinalis or portal venous gas. 5. Trace abdominopelvic ascites. 6. Hepatomegaly and hepatic steatosis. 7. Advanced coronary artery calcification. 8. Bladder distention. 9. Additional findings as above. ACT 112: Negative or not required by law. Electronically signed by: Mak Baeza M.D. 05/05/2022 3:22 PM
[2022-05-05 15:53] LABS: Appearance Urine Cloudy (Clear); Bacteria Urine Automated Negative (Negative); Bilirubin Urine Negative (Negative); Blood Urine Negative (Negative); Color Urine Yellow; Epithelial Cell Urine Auto 0-5 /lpf (0-5); Glucose Urine UA Negative (Negative); Ketones Urine Trace (Negative); Leukocyte Esterase Urine Negative (Negative); Nitrite Urine Negative (Negative); Protein Urine Negative (Negative); RBC Urine Automated 0-4 /hpf (0-4); Specific Gravity Urine 1.011 (1.000-1.030); Urobilinogen Urine Negative (Negative); pH Urine 6.5 (4.5-7.5)
[2022-05-05] MEDS ORDERED: STAT IV Infusion **Titration per Protocol STA ×2 (15:54→18:09)
[2022-05-05] MEDS ORDERED: niCARdipine 25 MG in SODIUM CHLORIDE 0.9% 240 ML IV SCH ×2 (16:00→18:15)
[2022-05-05 16:16] LABS: Amphetamines+Metham, Urine Neg (Neg); Barbiturates, Urine Neg (Neg); Benzodiazepine, Urine Pos (Neg); Cocaine, Urine Neg (Neg); MDMA (Ecstacy), Urine Neg (Neg); Methadone, Urine Neg (Neg); Opiate, Urine Neg (Neg); Phencyclidine, Urine Neg (Neg)
--- NOTE | 2022-05-05 17:12 | History & Physical Report ---
Date of Service May 05, 2022 Assessment & Plan (1) Altered mental status: Plan: Unclear cause Ammonia level and ABG pending Possible opiate withdrawal Less likely alcohol withdrawal given he was transferred from another hospital to [facility] on May 03 although records from this visit are pending ?alternative substance ingestion such as bath salts that does not appear on urine toxicology If blood pressure able to be controlled without nicardipine can be admitted to PCU (2) Encephalopathy, hypertensive: Plan: Stop nicardipine as infusion cannot be given outside of the ICU. Will give labetalol 10mg IV repeated doses until controlled. Hydralazine q4h 10mg PRN for sBP > 180 or sBP > 110 (3) Hypertension: Plan: Reportedly on valsartan 80 mg p.o. daily. Currently will hold in favor of shorter acting intravenous medications as above for hypertensive encephalopathy. (4) Alcoholism, chronic: (5) Anxiety and depression: Plan: Hold Lexapro pending improvement in mental status. Low suspicion of serotonin syndrome on current medication. (6) Chronic prescription opiate use: Plan: Suboxone listed on outpatient medications. Unclear history of this but appears to have been reduced in February per PDMP.. Plan VTE prophylaxis -Lovenox 40 mg subcu daily Diet -n.p.o. Disposition -admit to PCU Admission and Anticipated Discharge Date Admission Date: May 05, 2022 History of Present Illness Chief Complaint: Altered mental state, hallucinations Primary Care Provider: NO PCP Julio Ruelas is a 56 year old male who was at alcohol rehabilitation at [facility] alcohol rehabilitation presents to the ER due to change in mental status and hallucinations. Unable to get any significant history from the patient due to his current altered mental status. Discussed care with Keiry Abdi LPN @ [facility]. Reportedly he was admitted to [facility] on May 03 from a hospital in [facility] although unclear if he went through withdrawal there. His last drink was 3 weeks ago and he was drinking 2 pints of alcohol a day. Alcohol breathalyzer test on admission was negative. The physician this morning noticed he was significantly different from his admission where he was tense, off balance with abdominal spasms. More confused and restless. Blood pressure 170/100, heart rate 112. He was therefore sent to the ER for further evaluation. In the ER he appears to be having visual hallucinations and is extremely confused moving around in bed. Due to unclear history he was treated for alcohol withdrawal with lorazepam which appeared to help with his anxiety. His blood pressure was elevated up to 219/130. He was given hydralazine 10 mg IV for this and started on a nicardipine drip. He is referred to medicine for admission ongoing management of alcohol withdrawal and hypertensive encephalopathy. Allergies Allergy/AdvReac Type Severity Reaction Status Date / Time latex Allergy Unknown Verified 05/05/22 17:51 Penicillins Allergy Unknown Verified 05/05/22 17:51 Home Medications Medication Instructions Recorded Confirmed Type buprenorphine 2 mg-naloxone 0.5 mg 1 film sublingual BID 05/05/22 05/05/22 History sublingual film clonidine HCl 0.1 mg tablet 0.1 mg PO TID PRN .LOS 05/05/22 05/05/22 History cyanocobalamin (vitamin B-12) 1,000 mcg PO DAILY 05/05/22 05/05/22 History 1,000 mcg tablet (Vitamin B-12) diazepam 5 mg tablet (Valium) 5 mg PO .NOW 05/05/22 05/05/22 History escitalopram oxalate 10 mg tablet 10 mg PO DAILY 05/05/22 05/05/22 History (Lexapro) folic acid 1 mg tablet 1 mg PO DAILY 05/05/22 05/05/22 History hydroxyzine pamoate 50 mg capsule 50 mg PO TID PRN LOS 05/05/22 05/05/22 History (Vistaril) metformin 500 mg tablet 500 mg PO DIRECTED 05/05/22 05/05/22 History multivitamin 1 tab PO DAILY 05/05/22 05/05/22 History naltrexone 50 mg tablet 50 mg PO DAILY 05/05/22 05/05/22 History thiamine HCl (vitamin B1) 100 mg 100 mg PO DAILY 05/05/22 05/05/22 History tablet valsartan 80 mg tablet 80 mg PO DAILY 05/05/22 05/05/22 History Past Med/Surg History Medical History Alcohol withdrawal syndrome Aneurysm of descending thoracic aorta without rupture Anxiety and depression Chronic alcohol abuse Tobacco abuse Social History Smoking Status: Former smoker Second Hand Exposure: No; Do You Dip or Chew Tobacco: No; Tobacco Cessation Education Requested by Patient: No Hx Alcohol Use: No (In rehab) Hx Substance Use: Yes Last Used Substance: Unknown Preferred Language: Canadian Communication Ability: Impaired 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: No Beliefs That Will Affect Care: None Current Living Situation: Rehab Current Living Situation Comment: Patient transferred from [facility] Other Information That Helps Us Care for You: No Feels Safe at Home: Declines to Answer Assistive Devices: None Review of Systems Review of Systems: Unobtainable due to cognitive status Physical Exam Constitutional: well developed and + acute distress; + not well nourished Eyes: PERRL, conjunctivae normal, anicteric sclerae ENMT: Mouth: + dry oral mucous membranes Respiratory: + labored breathing, + uses accessory muscles and + tachypneic Auscultation: + rales (Bibasal); breath sounds present, no diminished lung sounds, no crackles, no rhonchi and no wheezes Cardiovascular: Rate/Rhythm: regular rate and regular rhythm Heart Sounds: no murmur Extremities: normal capillary refill and + pedal edema (1+ bilateral equal pitting); no calf tenderness Gastrointestinal (Abdomen): normal bowel sounds, soft, nontender, no hepatosplenomegaly Musculoskeletal: no cyanosis or clubbing, extremities motor strength 5/5 Neurologic: moves all extremities, awake and + confused; no focal motor deficits (No lateralizing deficit, not following commands for full exam) Motor/Sensory: no tremor (Unable to assess as he is moving all extremities in bed) Psychiatric: Orientation: alert; + not oriented x 3 Results & Data Results & Data ([facility]) Vital Signs (Past 12 Hours) Vital Signs Temp Pulse Pulse Resp BP BP Pulse Ox 05/05/22 16:51 102 H 05/05/22 14:44 36.8 C 103 H 19 219/130 H 98 05/05/22 16:20 100 H 13 99 05/05/22 16:17 97 H 16 99 05/05/22 16:17 180/132 H 05/05/22 16:10 104 H 16 98 05/05/22 16:00 105 H 17 98 05/05/22 15:55 104 H 17 99 05/05/22 15:55 181/129 H 05/05/22 15:50 105 H 13 97 05/05/22 15:45 192/154 H 05/05/22 15:45 100 H 20 95 05/05/22 15:40 105 H 31 H 97 05/05/22 15:40 193/140 H 05/05/22 15:30 18 99 05/05/22 15:20 103 H 24 05/05/22 15:15 173/114 H 05/05/22 14:34 20 05/05/22 14:34 197/140 H 05/05/22 14:30 26 H 05/05/22 14:20 21 96 05/05/22 14:10 33 H 96 05/05/22 14:00 101 H 23 96 05/05/22 13:50 103 H 22 95 05/05/22 13:40 103 H 16 96 05/05/22 13:30 102 H 18 98 05/05/22 13:20 106 H 21 97 05/05/22 13:10 103 H 20 98 05/05/22 13:00 107 H 23 98 05/05/22 12:50 104 H 27 H 97 05/05/22 12:48 105 H 30 H 96 05/05/22 15:24 98 05/05/22 12:49 105 H 05/05/22 12:45 36.9 C 108 H 19 208/134 H 99 O2 Del Method 05/05/22 16:51 05/05/22 14:44 Room Air 05/05/22 16:20 05/05/22 16:17 05/05/22 16:17 05/05/22 16:10 05/05/22 16:00 05/05/22 15:55 05/05/22 15:55 05/05/22 15:50 05/05/22 15:45 05/05/22 15:45 05/05/22 15:40 05/05/22 15:40 05/05/22 15:30 05/05/22 15:20 05/05/22 15:15 05/05/22 14:34 05/05/22 14:34 05/05/22 14:30 05/05/22 14:20 05/05/22 14:10 05/05/22 14:00 05/05/22 13:50 05/05/22 13:40 05/05/22 13:30 05/05/22 13:20 05/05/22 13:10 05/05/22 13:00 05/05/22 12:50 05/05/22 12:48 05/05/22 15:24 Room Air 05/05/22 12:49 05/05/22 12:45 Room Air Laboratory Results Abnormal lab results 05/05/22 05/05/22 05/05/22 Range/Units 12:50 12:50 12:50 RBC 4.28 L (4.70-6.10) M/uL Hct 41.0 L (42.0-52.0) % Neut # (Auto) 7.08 H (1.40-6.50) K/uL Lymph # (Auto) 1.12 L (1.2-3.4) K/uL Thayer # (Auto) 0.66 H (0.11-0.59) K/uL ABG pH (7.35-7.45) ABG pCO2 (35-46) mmHg ABG pO2 (80-95) mmHg ABG HCO3 (19-24) mmol/L ABG O2 Saturation (90-95) % ABG Base Excess (-9-1.8) mEq/L Glucose 169 H (70-99(Fasting)) mg/dl POC Glucose (70-99) mg/dl Urine Appearance (Clear) Urine Ketones (Negative) Salicylates < 3.0 L (3.0-30) mg/dl Acetaminophen < 3 L (10-30) ug/ml U Benzodiazepines Scrn (Neg) 05/05/22 05/05/22 05/05/22 Range/Units 12:55 15:20 15:20 RBC (4.70-6.10) M/uL Hct (42.0-52.0) % Neut # (Auto) (1.40-6.50) K/uL Lymph # (Auto) (1.2-3.4) K/uL Thayer # (Auto) (0.11-0.59) K/uL ABG pH (7.35-7.45) ABG pCO2 (35-46) mmHg ABG pO2 (80-95) mmHg ABG HCO3 (19-24) mmol/L ABG O2 Saturation (90-95) % ABG Base Excess (-9-1.8) mEq/L Glucose (70-99(Fasting)) mg/dl POC Glucose 166 H (70-99) mg/dl Urine Appearance Cloudy A (Clear) Urine Ketones Trace H (Negative) Salicylates (3.0-30) mg/dl Acetaminophen (10-30) ug/ml U Benzodiazepines Scrn Pos H (Neg) 05/05/22 Range/Units 18:13 RBC (4.70-6.10) M/uL Hct (42.0-52.0) % Neut # (Auto) (1.40-6.50) K/uL Lymph # (Auto) (1.2-3.4) K/uL Thayer # (Auto) (0.11-0.59) K/uL ABG pH 7.54 H* (7.35-7.45) ABG pCO2 29 L (35-46) mmHg ABG pO2 101 H (80-95) mmHg ABG HCO3 25 H (19-24) mmol/L ABG O2 Saturation 99.7 H (90-95) % ABG Base Excess 3.1 H (-9-1.8) mEq/L Glucose (70-99(Fasting)) mg/dl POC Glucose (70-99) mg/dl Urine Appearance (Clear) Urine Ketones (Negative) Salicylates (3.0-30) mg/dl Acetaminophen (10-30) ug/ml U Benzodiazepines Scrn (Neg) Diagnostic Findings CT head/brain wo con CLINICAL HISTORY: 56 years-old Male with vbg. Acute dizziness TECHNIQUE: Multiple axial CT images of the head were obtained without contrast. A dose lowering technique was utilized adhering to the principles of ALARA. CT DOSE: 1812.68 mGycm COMPARISON: None. FINDINGS: No acute intracranial hemorrhage, midline shift, intracranial mass, hydrocepha whitney, territorial ischemia or abnormal extra-axial collection. Motion degraded exam. The calvarium is intact. The paranasal sinuses, mastoid air cells, and middle ear cavities are clear. IMPRESSION: No acute intracranial abnormality identified. XR chest 1V portable CLINICAL HISTORY: Altered mental status. COMPARISON STUDY: No previous studies for comparison. FINDINGS: No pneumothorax or pleural effusion is noted. Mild cardiomegaly without evidence for pulmonary edema. No consolidation is identified. Patient is mildly rotated. IMPRESSION: No acute cardiopulmonary findings. CT SCAN OF THE ABDOMEN AND PELVIS WITHOUT IV CONTRAST CLINICAL HISTORY: Generalized abdominal pain. COMPARISON STUDY: No priors. TECHNIQUE: CT scan of the abdomen and pelvis is performed from the lung bases to the proximal femora. Images are reviewed in the axial, sagittal, and coronal planes. IV contrast was not administered for this examination as per the [facility] clinician. Note that the examination was performed and significantly suboptimal fashion without oral and IV contrast. The examination is also significantly degraded by motion artifact, as well as by streak artifact from the arms which could not be elevated above the abdomen. The patient was scanned twice in an effort to improve image quality. A dose lowering technique was utilized adhering to the principles of ALARA. CT DOSE: 2341.07 mGycm FINDINGS: Lung bases: The heart is normal in size and without pericardial effusion. The pulmonary arteries are densely calcified. The lung bases are clear. A small hiatal hernia is noted. Liver: The unenhanced liver is enlarged, measuring 21.7 cm in length. The liver demonstrates diffuse decreased attenuation indicating steatosis. Fatty sparing is seen adjacent to the gallbladder fossa. There is no intrahepatic biliary ductal dilatation. Gallbladder: Unremarkable. Spleen: Normal in size and attenuation. Pancreas: Unremarkable. Adrenal glands: Unremarkable. Kidneys: The unenhanced kidneys are normal in size and without hydronephrosis. There are no renal calculi identified. There is no evidence of contour deforming renal mass lesion. Abdominal vasculature: There is mild/moderate atherosclerotic calcification and ectasia of the abdominal aorta. Bowel: There is no bowel obstruction. Mild inflammatory changes seen around the small bowel loops and there is trace interloop fluid. No pneumatosis intestinalis or portal venous gas is identified. The appendix is well- visualized and normal. Peritoneum: There is trace perihepatic ascites, as well as trace free fluid in the pelvis. No intraperitoneal free air is seen. There is a fat-containing umbilical hernia. Lymphadenopathy: None. Pelvic viscera: The prostate gland is mildly enlarged and heterogeneous. The bladder is distended but otherwise normal in appearance. Skeletal structures: There is mild lumbosacral spondylosis and scoliosis. No lytic or blastic lesions are seen. Sclerotic change is noted in the sacroiliac joints. IMPRESSION: 1. Significantly suboptimal examination without oral and IV contrast. The examination is also significantly degraded by streak and motion artifact. 2. Inflammatory change is seen around the small bowel loops with trace interloop fluid. The appearance suggests a nonspecific enteritis and clinical correlation required. 3. There is no bowel obstruction. 4. No intraperitoneal free air is seen. There is no pneumatosis intestinalis or portal venous gas. 5. Trace abdominopelvic ascites. 6. Hepatomegaly and hepatic steatosis. 7. Advanced coronary artery calcification. 8. Bladder distention. 9. Additional findings as above. Medications Administered ER medications given: Normal saline 1 L bolus Lorazepam 1 mg IV Banana bag Lorazepam 1 mg IV Hydralazine 10 mg IV Nicardipine IV drip at 7.5 mg/h Lorazepam 1 mg IV ECG Indication: altered mental status Rate (beats per minute): 102 Rhythm: sinus tachycardia Findings: + other (T wave flattening actually) Comparison ECG Date: no prior available Code Status & VTE Plan Code Status Full VTE Prophylaxis Plan VTE Prophylaxis will be ordered: Yes Critical Care Time Critical Care Time: Yes Total Critical Care Time: 35 PG Care Time/CCT Total # of Minutes Spent Total Time Spent with Patient: Total time spent is greater than 50% in coordination of care (as documented) at patient's floor/unit and/or counseling patient: Critical Care Time: Yes Total Critical Care Time: 35 Coding Level of Care Code 95333 INT INP/OBS CARE 3MIN Diagnoses Altered mental status R41.82 Encephalopathy, hypertensive I67.4 Hypertension I10 Alcoholism, chronic F10.20 Anxiety and depression F41.9; F32.A Chronic prescription opiate use Z79.891 Additional Codes Critical Care Time - Critical Care Time: Yes ([id number])
[2022-05-05] MEDS ORDERED: THIAMINE HCL 500 MG in SODIUM CHLORIDE 0.9% 50 ML IV STA (17:15)
[2022-05-05] MEDS ORDERED: LABETALOL HCL IV 5 MG/ML 20ML IV STA (17:32)
[2022-05-05 18:22] LABS: Base Excess ABG 3.1 mEq/L (-9-1.8); HCO3 ABG 25 mmol/L (19-24); Oxygen Saturation ABG 99.7 % (90-95); PCO2 ABG 29 mmHg (35-46); PO2 ABG 101 mmHg (80-95)
[2022-05-05 18:26] LABS: pH ABG 7.54 (7.35-7.45)
[2022-05-05 18:27] LABS: Allen Test Pos (Pos)
[2022-05-05] MEDS ORDERED: FLUARIX QUADRIVALENT 0.5 ML SYR IM ONE (20:33)
[2022-05-05] MEDS ORDERED: LABETALOL HCL IV 5 MG/ML 20ML IV PRN (20:41)
[2022-05-05] MEDS: LACTATED RINGER'S 1,000 ML IV SCH (21:38)
[2022-05-05] MEDS: THIAMINE HCL 500 MG in SODIUM CHLORIDE 0.9% 50 ML IV SCH (21:40)
[2022-05-05] MEDS ORDERED: LORazepam 2 MG/1 ML VIAL IV PRN ×4 (22:17→22:50)
[2022-05-05] MEDS ORDERED: GLUCAGON FOR INJ 1 MG VIAL SQ PRN (22:19)
[2022-05-05] MEDS ORDERED: DEXTROSE 50% 50 ML SYRINGE IV PRN (22:19)
[2022-05-05] MEDS ORDERED: CARBOHYDRATES FOR HYPOGLYCEMIA PO PRN (22:19)
[2022-05-05] MEDS ORDERED: GLUCOSE 10 TAB/TUBE PO PRN (22:19)
[2022-05-05] MEDS ORDERED: GLUCOSE 40% GEL 15 GM TUBE PO PRN (22:19)
[2022-05-05] MEDS ORDERED: Ativan IV Alcohol Withdrawal--Active Protocol IV PRN (22:50)
[2022-05-05 22:59] LABS: Base Excess ABG 0.4 mEq/L (-9-1.8); HCO3 ABG 23 mmol/L (19-24); Oxygen Saturation ABG 97.4 % (90-95); PCO2 ABG 31 mmHg (35-46); PO2 ABG 84 mmHg (80-95); pH ABG 7.48 (7.35-7.45)
[2022-05-05 23:00] LABS: Allen Test Pos (Pos)
[2022-05-05] MEDS: ENOXAPARIN INJ 40 MG/0.4 ML SYR SQ SCH (23:33)
[2022-05-05] MEDS: LORazepam 2 MG/1 ML VIAL IV PRN (23:45)
[2022-05-06] MEDS: INSULIN ASPART PER UNIT SC SCH ×5 (00:03→20:53)
[2022-05-06] MEDS: hydrALAZINE HCL 20 MG/ML VIAL IV PRN ×2 (04:00→23:03)
[2022-05-06] MEDS: THIAMINE HCL 500 MG in SODIUM CHLORIDE 0.9% 50 ML IV SCH ×3 (04:41→21:29)
[2022-05-06] MEDS: LACTATED RINGER'S 1,000 ML IV SCH ×3 (05:47→22:33)
[2022-05-06] MEDS: LORazepam 2 MG/1 ML VIAL IV PRN ×2 (05:50→11:29)
--- NOTE | 2022-05-06 06:25 | Electrocardiogram Report ---
Test Reason : Blood Pressure : / mmHG Vent. Rate : 102 BPM Atrial Rate : 102 BPM P-R Int : 180 ms QRS Dur : 092 ms QT Int : 362 ms P-R-T Axes : 047 -04 111 degrees QTc Int : 471 ms Poor data quality, interpretation may be adversely affected Sinus tachycardia T wave abnormality, consider lateral ischemia Abnormal ECG No previous ECGs available Confirmed by Talha Mckeon ([id number]) on 05/06/2022 6:24:45 AM Referred By: Confirmed By:Talha Mckeon
[2022-05-06 07:53] LABS: Basophils # (auto) 0.11 K/uL (0-0.2); Basophils % (auto) 1.2 %; Eosinophils # (auto) 0.05 K/uL (0-0.50); Eosinophils % (auto) 0.5 %; Hematocrit (blood only) 38.8 % (42.0-52.0); Hemoglobin 13.5 g/dl (14.0-18.0); Immature Granulocytes # (auto) 0.04 K/uL (0.01-0.20); Immature Granulocytes % (auto) 0.4 %; Lymphocytes # (auto) 1.43 K/uL (1.2-3.4); Lymphocytes % (auto) 15.7 %; Mean Corpuscular Hemoglobin 32.8 pg (25.0-34.0); Mean Corpuscular Hgb Conc 34.8 g/dL (32.0-36.0); Mean Corpuscular Volume 94.4 fL (80.0-100.0); Mean Platelet Volume 10.6 fL (9.4-12.4); Monocytes # (auto) 0.81 K/uL (0.11-0.59); Monocytes % (auto) 8.9 %; Neutrophils # (auto) 6.67 K/uL (1.40-6.50); Neutrophils % (auto) 73.3 %; Platelet Count 266 K/uL (130-400); RDW Coefficient of Variation 12.5 % (11.5-14.5); RDW Standard Deviation 43.5 fL (36.4-46.3); Red Blood Count 4.11 M/uL (4.70-6.10); White Blood Count 9.11 K/ul (4.8-10.8)
[2022-05-06 08:13] LABS: Albumin Globulin Ratio 1.2 (0.9-2); Albumin Level 3.7 gm/dl (3.4-5.0); BUN Creatinine Ratio 8.6 (10-20); Bilirubin,Total 0.7 mg/dl (0.2-1.0); Calcium 9.1 mg/dl (8.5-10.1); Est GFR (African American) 114.3 ml/min; Est GFR (Non-African American) 98.7 ml/min; Potassium 3.7 mmol/L (3.5-5.1); Total Protein 6.7 gm/dl (6.0-8.3)
[2022-05-06] MEDS: BUPRENORPHINE/NALOXONE 2/0.5MG 1 TAB PO SCH ×2 (08:56→21:15)
[2022-05-06] MEDS: NICOTINE 21 MG/24 HR TDSY TD SCH (12:36)
[2022-05-06] MEDS ORDERED: LORazepam 2 MG/1 ML VIAL IV STA (12:36)
[2022-05-06] MEDS ORDERED: chlordiazePOXIDE ALCOHOL WITHDRAWL 50MG PO STA (13:49)
[2022-05-06] MEDS: chlordiazePOXIDE HCl 25 MG CAP PO SCH ×2 (16:15→21:15)
[2022-05-06] MEDS ORDERED: Nursing to Pharmacy Communication SCH (16:45)
[2022-05-06] MEDS ORDERED: CLARITHROMYCIN 500 MG TAB PO ONE (19:00)
[2022-05-06] MEDS: ENOXAPARIN INJ 40 MG/0.4 ML SYR SQ SCH (21:17)
--- NOTE | 2022-05-06 21:21 | Hospitalist Progress Note ---
Date of Service May 06, 2022 Assessment & Plan (1) Altered mental status: Plan: Possible opiate withdrawal Less likely alcohol withdrawal given he was transferred from another hospital to [facility] on May 03 although records from this visit are pending ?alternative substance ingestion such as bath salts that does not appear on urine toxicology If blood pressure able to be controlled without nicardipine can be admitted to PCU Symtpoms improve with benzo, will place on librium taper and monitor (2) Encephalopathy, hypertensive: Plan: Stop nicardipine as infusion cannot be given outside of the ICU. Will give labetalol 10mg IV repeated doses until controlled. Hydralazine q4h 10mg PRN for sBP > 180 or sBP > 110 BP better controlled (3) Hypertension: Plan: Reportedly on valsartan 80 mg p.o. daily. Currently will hold in favor of shorter acting intravenous medications as above for hypertensive encephalopathy. (4) Alcoholism, chronic: (5) Anxiety and depression: Plan: Hold Lexapro pending improvement in mental status. Low suspicion of serotonin syndrome on current medication. (6) Chronic prescription opiate use: Plan: Suboxone listed on outpatient medications. Unclear history of this but appears to have been reduced in February per PDMP.. Erythrasma Placed on clarithromycin 1 gr one dose on 05/06 Plan VTE prophylaxis -Lovenox 40 mg subcu daily Diet -n.p.o. Disposition -admit to PCU Admission and Anticipated Discharge Date Admission Date: May 05, 2022 Subjective Patient reports it has been 5 weeks since his last drink. He apologizes for the ambulance ride and reports seeing hallucinations yesterday. Review of Systems Review of Systems: All systems reviewed & are unremarkable except as noted in HPI & below Physical Exam Constitutional: well developed and + acute distress; + not well nourished Eyes: PERRL, conjunctivae normal, anicteric sclerae ENMT: Mouth: + dry oral mucous membranes Respiratory: Auscultation: + rales (Bibasal); breath sounds present, no diminished lung sounds, no crackles, no rhonchi and no wheezes Cardiovascular: RRR, no murmur, no edema Rate/Rhythm: regular rate and regular rhythm Heart Sounds: no murmur Extremities: normal capillary refill and + pedal edema (1+ bilateral equal pitting); no calf tenderness Gastrointestinal (Abdomen): normal bowel sounds, soft, nontender, no hepatosplenomegaly Musculoskeletal: no cyanosis or clubbing, extremities motor strength 5/5 Neurologic: moves all extremities and awake Motor/Sensory: no tremor (Unable to assess as he is moving all extremities in bed) Psychiatric: Orientation: alert, oriented to person and oriented to place Results & Data Results & Data ([facility]) Vital Signs (Past 12 Hours) Vital Signs Temp Pulse Pulse Resp BP Pulse Ox O2 Del Method 05/06/22 19:17 36.8 C 79 18 168/98 H 97 Room Air 05/06/22 15:38 36.9 C 76 18 167/96 H 98 Room Air 05/06/22 12:12 103 H 05/06/22 12:12 Room Air 05/06/22 11:55 36.7 C 81 18 170/72 H 96 Room Air PG Care Time/CCT Total # of Minutes Spent Total Time Spent with Patient: Total time spent is greater than 50% in coordination of care (as documented) at patient's floor/unit and/or counseling patient: Coding Level of Care Code 13736 SUB INP/OBS CARE 3/50MIN Diagnoses Altered mental status R41.82 Encephalopathy, hypertensive I67.4 Hypertension I10 Alcoholism, chronic F10.20 Anxiety and depression F41.9; F32.A Chronic prescription opiate use Z79.891
[2022-05-06] MEDS: VALSARTAN 80 MG TAB PO SCH (22:35)
[2022-05-07] MEDS: chlordiazePOXIDE HCl 25 MG CAP PO SCH ×4 (02:27→22:03)
[2022-05-07] MEDS: THIAMINE HCL 500 MG in SODIUM CHLORIDE 0.9% 50 ML IV SCH ×2 (06:35→13:04)
[2022-05-07 07:07] LABS: Hematocrit (blood only) 37.3 % (42.0-52.0); Hemoglobin 12.8 g/dl (14.0-18.0); Mean Corpuscular Hemoglobin 32.7 pg (25.0-34.0); Mean Corpuscular Hgb Conc 34.3 g/dL (32.0-36.0); Mean Corpuscular Volume 95.4 fL (80.0-100.0); Mean Platelet Volume 10.4 fL (9.4-12.4); Platelet Count 253 K/uL (130-400); RDW Coefficient of Variation 12.4 % (11.5-14.5); RDW Standard Deviation 43.9 fL (36.4-46.3); Red Blood Count 3.91 M/uL (4.70-6.10); White Blood Count 6.75 K/ul (4.8-10.8)
[2022-05-07 08:22] LABS: Albumin Level 3.8 gm/dl (3.4-5.0); BUN Creatinine Ratio 9.8 (10-20); Bilirubin Direct 0.1 mg/dl (0-0.2); Bilirubin,Total 0.6 mg/dl (0.2-1.0); Calcium 8.9 mg/dl (8.5-10.1); Creatinine Clr Calc Pharmacy 115.6 ml/min; Est GFR (African American) 113.8 ml/min; Est GFR (Non-African American) 98.2 ml/min; Potassium 3.9 mmol/L (3.5-5.1); Total Protein 6.5 gm/dl (6.0-8.3)
[2022-05-07] MEDS: INSULIN ASPART PER UNIT SC SCH ×4 (08:36→21:52)
[2022-05-07] MEDS: LACTATED RINGER'S 1,000 ML IV SCH ×2 (08:37→16:23)
[2022-05-07] MEDS: NICOTINE 21 MG/24 HR TDSY TD SCH (09:03)
[2022-05-07] MEDS: BUPRENORPHINE/NALOXONE 2/0.5MG 1 TAB PO SCH ×2 (09:03→21:52)
[2022-05-07] MEDS: ENOXAPARIN INJ 40 MG/0.4 ML SYR SQ SCH (21:52)
[2022-05-07] MEDS: VALSARTAN 80 MG TAB PO SCH (21:52)
[2022-05-07] MEDS: LORazepam 2 MG/1 ML VIAL IV PRN (22:02)
[2022-05-07 22:27] LABS: 7-Aminoclonaz, Confirm NEGATIVE ng/mL (<25); Hydro-Alp Ur, GC/MS NEGATIVE ng/mL (<25); Hydroxyethylflurazepam, Conf NEGATIVE ng/mL (<50); Hydroxymidazolam Ur, GC/MS NEGATIVE ng/mL (<50); Hydroxytriazolam NEGATIVE ng/mL (<50); Lorazepam, Ur GC/MS 73 ng/mL (<50); Nordiazepam, Confirm NEGATIVE ng/mL (<50); Oxazepam Ur, GC/MS 1030 ng/mL (<50); Temazepam, Confirm NEGATIVE ng/mL (<50)
--- NOTE | 2022-05-07 22:39 | Hospitalist Progress Note ---
Date of Service May 07, 2022 Assessment & Plan (1) Altered mental status: Plan: Possible opiate withdrawal Less likely alcohol withdrawal given he was transferred from another hospital to [facility] on May 03 although records from this visit are pending ?alternative substance ingestion such as bath salts that does not appear on urine toxicology Could this be iatrogenic. Symptoms improved with benzo will continue librium taper and monitor (2) Encephalopathy, hypertensive: Plan: Stop nicardipine as infusion cannot be given outside of the ICU. Will give labetalol 10mg IV repeated doses until controlled. Hydralazine q4h 10mg PRN for sBP > 180 or sBP > 110 BP better controlled (3) Hypertension: Plan: Reportedly on valsartan 80 mg p.o. daily. Currently will hold in favor of shorter acting intravenous medications as above for hypertensive encephalopathy. (4) Alcoholism, chronic: (5) Anxiety and depression: Plan: Hold Lexapro pending improvement in mental status. Low suspicion of serotonin syndrome on current medication. (6) Chronic prescription opiate use: Plan: Suboxone listed on outpatient medications. Unclear history of this but appears to have been reduced in February per PDMP.. Erythrasma Placed on clarithromycin 1 gr one dose on 05/06 Plan VTE prophylaxis -Lovenox 40 mg subcu daily Disposition -admit to PCU Admission and Anticipated Discharge Date Admission Date: May 05, 2022 Subjective Patient reports feeling more comfortable today. Review of Systems Review of Systems: All systems reviewed & are unremarkable except as noted in HPI & below Physical Exam Constitutional: WD/WN, vitals as above Eyes: PERRL, conjunctivae normal, anicteric sclerae ENMT: external ear and nose normal, oropharynx normal Neck: trachea midline, no thyromegaly Respiratory: normal respiratory effort, lungs clear to auscultation Cardiovascular: RRR, no murmur, no edema Gastrointestinal (Abdomen): normal bowel sounds, soft, nontender, no hepatosplenomegaly Results & Data Results & Data ([facility]) Vital Signs (Past 12 Hours) Vital Signs Temp Pulse Pulse Resp BP BP Pulse Ox 05/07/22 19:16 36.7 C 78 20 159/105 H 97 05/07/22 16:09 86 05/07/22 15:20 36.9 C 79 18 149/90 H 96 05/07/22 11:37 36.9 C 77 19 155/94 H 96 O2 Del Method 05/07/22 19:16 Room Air 05/07/22 16:09 05/07/22 15:20 Room Air 05/07/22 11:37 Room Air PG Care Time/CCT Total # of Minutes Spent Total Time Spent with Patient: Total time spent is greater than 50% in coordination of care (as documented) at patient's floor/unit and/or counseling patient: Coding Level of Care Code 81915 SUB INP/OBS CARE 2/35MIN Diagnoses Altered mental status R41.82 Encephalopathy, hypertensive I67.4 Hypertension I10 Alcoholism, chronic F10.20 Anxiety and depression F41.9; F32.A Chronic prescription opiate use Z79.891
[2022-05-08] MEDS: LACTATED RINGER'S 1,000 ML IV SCH ×4 (00:17→20:05)
[2022-05-08] MEDS: hydrALAZINE HCL 20 MG/ML VIAL IV PRN ×3 (03:15→23:55)
[2022-05-08] MEDS: chlordiazePOXIDE HCl 25 MG CAP PO SCH (06:05)
[2022-05-08 07:55] LABS: Creatinine Clr Calc Pharmacy 99.7 ml/min; Est GFR (African American) 102.6 ml/min; Est GFR (Non-African American) 88.5 ml/min
[2022-05-08] MEDS: INSULIN ASPART PER UNIT SC SCH ×4 (07:59→20:07)
[2022-05-08] MEDS: BUPRENORPHINE/NALOXONE 2/0.5MG 1 TAB PO SCH ×2 (08:50→20:04)
[2022-05-08] MEDS: NICOTINE 21 MG/24 HR TDSY TD SCH (08:50)
[2022-05-08] MEDS: LORazepam 2 MG/1 ML VIAL IV PRN (09:10)
[2022-05-08] MEDS ORDERED: amLODIPine BESYLATE 5 MG TAB PO ONE (09:27)
--- NOTE | 2022-05-08 11:16 | Ultrasound Report ---
US duplex renal artery CLINICAL HISTORY: hypertension TECHNIQUE: Real-time grayscale and color and spectral Doppler ultrasound imaging of the kidneys was p erformed. Comparison: None available at the time of this dictation. FINDINGS: Right kidney measures 12 cm. Left kidney measures 13.1 cm. RIGHT: Normal echogenicity with preserved corticomedullary differentiation. Normal cortical thickness. No hy dronephrosis. No convincing evidence of calculus or mass. Spectral analysis: The distal right renal artery demonstrates peak systolic velocities up to 72 cm/s. Resistive indices measure up to 0.68 LEFT: Normal echogenicity with preserved corticomedullary differentiation. Normal cortical thickness. No hy dronephrosis. No convincing evidence of calculus or mass. Spectral analysis: The distal left renal artery demonstrates peak systolic velocities up to 59 cm/s. The resistive indic es measure up to 0.67. Abdominal aorta: Patent. Peak systolic velocity 135-145 cm/s. Bladder: Normal. Bilateral ureteral jets present. Reference ranges: Normal main renal artery peak systolic velocity less than 180 cm/s. Ratio of renal artery PSV to aort ic PSV less than 3.5 equates to normal or less than 60% stenosis. Only one of the two criteria listed needs to be met for diagnosis. IMPRESSION: No evidence of renal artery stenosis. ACT 112: Negative or not required by law. Electronically signed by: Raúl Gardner M.D. 05/08/2022 11:15 AM
[2022-05-08 14:39] LABS: Potassium Random Urine 47.2 mmol/L
[2022-05-08 16:26] LABS: Estimated Average Glucose 166 mg/dl; Hemoglobin A1C 7.4 % (4.5-5.6)
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
[2022-05-08] MEDS: ENOXAPARIN INJ 40 MG/0.4 ML SYR SQ SCH (20:04)
[2022-05-08] MEDS: VALSARTAN 80 MG TAB PO SCH (20:04)
[2022-05-09] MEDS: LACTATED RINGER'S 1,000 ML IV SCH ×3 (02:05→18:15)
--- NOTE | 2022-05-09 06:35 | Hospitalist Progress Note ---
Date of Service May 09, 2022 Assessment & Plan (1) Altered mental status: Plan: unsure xact cause, timeline does not make sense unless patient was taking large amount of benzo and went into withdrawal, opiate withdrawal is also a possibility. Less likely alcohol withdrawal given he was transferred from another hospital to [facility] on May 03 although records from this visit are pending ?alternative substance ingestion such as bath salts that does not appear on urine toxicology Could this be iatrogenic. Symptoms improved with benzo Patient was placed on librium taper on 05/06 Patient appears more drowsy today, will taper quicker his librium to 10 mg q12h and end taper in AM of 04/08 (2) Encephalopathy, hypertensive: Plan: Stop nicardipine as infusion cannot be given outside of the ICU. Will give labetalol 10mg IV repeated doses until controlled. Hydralazine q4h 10mg PRN for sBP > 180 or sBP > 110 BP better controlled (3) Hypertension: Plan: Reportedly on valsartan 80 mg p.o. daily. Currently will hold in favor of shorter acting intravenous medications as above for hypertensive encephalopathy. (4) Alcoholism, chronic: (5) Anxiety and depression: Plan: Hold Lexapro pending improvement in mental status. Low suspicion of serotonin syndrome on current medication. will consult psych. (6) Chronic prescription opiate use: Plan: Suboxone listed on outpatient medications. Unclear history of this but appears to have been reduced in February per PDMP.. Erythrasma Placed on clarithromycin 1 gr one dose on 05/06 Plan VTE prophylaxis -Lovenox 40 mg subcu daily Disposition -admit to PCU Admission and Anticipated Discharge Date Admission Date: May 05, 2022 Subjective 56 yo male reports feeling drowsy today. He states he has no new symptoms. He denies any visual or auditory hallucina.tions Review of Systems Review of Systems: All systems reviewed & are unremarkable except as noted in HPI & below Physical Exam Physical Exam: Constitutional: WD/WN, vitals as above Eyes: PERRL, conjunctivae normal, anicteric sclerae ENMT: external ear and nose normal, oropharynx normal Neck: trachea midline, no thyromegaly Respiratory: normal respiratory effort, lungs clear to auscultation Cardiovascular: RRR, no murmur, no edema Gastrointestinal (Abdomen): normal bowel sounds, soft, nontender, no hepatosplenomegaly Results & Data Results & Data ([facility]) Vital Signs (Past 12 Hours) Vital Signs Temp Pulse Pulse Resp BP Pulse Ox O2 Del Method 05/09/22 02:48 36.6 C 75 18 153/78 H 95 Room Air 05/08/22 22:03 87 05/08/22 23:56 176/104 H 05/08/22 22:21 36.6 C 77 18 185/96 H 94 Room Air 05/08/22 19:01 36.7 C 84 18 177/93 H 97 Room Air PG Care Time/CCT Total # of Minutes Spent Total Time Spent with Patient: Total time spent is greater than 50% in coordination of care (as documented) at patient's floor/unit and/or counseling patient: Coding Level of Care Code 68318 SUB INP/OBS CARE 2/35MIN Diagnoses Altered mental status R41.82 Encephalopathy, hypertensive I67.4 Hypertension I10 Alcoholism, chronic F10.20 Anxiety and depression F41.9; F32.A Chronic prescription opiate use Z79.891
[2022-05-09] MEDS: INSULIN ASPART PER UNIT SC SCH ×4 (07:54→20:06)
[2022-05-09] MEDS: amLODIPine BESYLATE 5 MG TAB PO SCH (07:56)
[2022-05-09] MEDS: BUPRENORPHINE/NALOXONE 2/0.5MG 1 TAB PO SCH ×2 (08:31→20:00)
[2022-05-09] MEDS: NICOTINE 21 MG/24 HR TDSY TD SCH (08:32)
[2022-05-09] MEDS: LORazepam 2 MG/1 ML VIAL IV PRN ×2 (10:48→19:50)
[2022-05-09] MEDS: hydrALAZINE HCL 20 MG/ML VIAL IV PRN (15:29)
[2022-05-09] MEDS: ENOXAPARIN INJ 40 MG/0.4 ML SYR SQ SCH (20:00)
[2022-05-09] MEDS: VALSARTAN 80 MG TAB PO SCH (20:00)
--- NOTE | 2022-05-09 22:05 | Ultrasound Report ---
ULTRASOUND LEFT UPPER EXTREMITY VENOUS CLINICAL HISTORY: Left arm erythema and swelling. COMPARISON STUDY: No priors. TECHNIQUE: Real-time, grayscale, and color Doppler sonography of the deep veins of the left upper ext remity is performed. Compression and augmentation were utilized. FINDINGS: There is no sonographic evidence of deep venous thrombosis identified in the left upper ext remity. The left internal jugular, axillary, and brachial veins are patent and normally compressible. Normal venous waveforms and augmentation are seen within the left subclavian vein. There is occlusiv e superficial venous thrombus within the basilic vein in the distal upper extremity. This measures ap proximately 5 cm in length. An indeterminate 3 mm echogenic focus within the basilic vein thrombus ma y represent a calcification. The cephalic vein appears clear. The visualized radial and ulnar veins a re patent. Soft tissue edema is seen in the left arm. IMPRESSION: 1. There is no sonographic evidence of deep venous thrombosis identified in the left upper extremity. 2. There is occlusive superficial venous thrombosis in the basilic vein as above. ACT 112: Negative or not required by law. Electronically signed by: Mak Baeza M.D. 05/09/2022 10:03 PM
--- NOTE | 2022-05-10 00:28 | Hospitalist Progress Note ---
Date of Service May 09, 2022 Assessment & Plan (1) Altered mental status: Plan: unsure xact cause, timeline does not make sense unless patient was taking large amount of benzo and went into withdrawal, opiate withdrawal is also a possibility. Less likely alcohol withdrawal given he was transferred from another hospital to [facility] on May 03 although records from this visit are pending ?alternative substance ingestion such as bath salts that does not appear on urine toxicology Could this be iatrogenic. Symptoms improved with benzo Patient was placed on librium taper on 05/06 Patient appears more drowsy today, will taper quicker his librium to 10 mg q12h and end taper in AM of 04/08 05/09-We will continue to monitor patient's mental status which appears to be improving Obtain phone number to the patient's sister as well as his to discuss his long-term placement Also will check Doppler of upper extremity rule out any upper extremity DVT Patient noted to be on subcu Lovenox prophylaxis (2) Encephalopathy, hypertensive: Plan: Stop nicardipine as infusion cannot be given outside of the ICU. Will give labetalol 10mg IV repeated doses until controlled. Hydralazine q4h 10mg PRN for sBP > 180 or sBP > 110 BP better controlled (3) Hypertension: Plan: Reportedly on valsartan 80 mg p.o. daily. Currently will hold in favor of shorter acting intravenous medications as above for hypertensive encephalopathy. (4) Alcoholism, chronic: (5) Anxiety and depression: Plan: Hold Lexapro pending improvement in mental status. Low suspicion of serotonin syndrome on current medication. will consult psych. (6) Chronic prescription opiate use: Plan: Suboxone listed on outpatient medications. Unclear history of this but appears to have been reduced in February per PDMP.. Erythrasma Placed on clarithromycin 1 gr one dose on 05/06 Plan VTE prophylaxis -Lovenox 40 mg subcu daily Disposition -admit to PCU Admission and Anticipated Discharge Date Admission Date: May 05, 2022 Subjective Patient reports some left arm discomfort Concerns regarding long-term placement discussed with patient as well along with RN in the room Physical Exam Physical Exam: Head and ENT no thyroid enlargement trachea midline Cardiovascular S1-S2 are normal no S3 Lungs bilateral air entry fair no wheezing Abdomen soft nondistended positive bowel sounds no rebound tenderness Extremity shows trace edema Left upper extremity swelling with erythema and warmth Neurologically no focal deficits Skin shows no rash no cyanosis Results & Data Results & Data ([facility]) Vital Signs (Past 12 Hours) Vital Signs Temp Pulse Pulse Resp BP BP Pulse Ox 05/09/22 22:10 86 05/09/22 22:42 36.7 C 83 18 168/87 H 95 05/09/22 19:05 36.6 C 88 19 171/89 H 96 05/09/22 15:12 37.3 C 80 19 171/101 H 96 O2 Del Method 05/09/22 22:10 05/09/22 22:42 Room Air 05/09/22 19:05 Room Air 05/09/22 15:12 Room Air PG Care Time/CCT Total # of Minutes Spent Total Time Spent with Patient: Total time spent is greater than 50% in coordination of care (as documented) at patient's floor/unit and/or counseling patient: Coding Level of Care Code 75882 SUB INP/OBS CARE 04/16MIN Diagnoses Altered mental status R41.82 Encephalopathy, hypertensive I67.4 Hypertension I10 Alcoholism, chronic F10.20 Anxiety and depression F41.9; F32.A Chronic prescription opiate use Z79.891
[2022-05-10] MEDS: LORazepam 2 MG/1 ML VIAL IV PRN ×3 (00:42→19:37)
[2022-05-10] MEDS: LACTATED RINGER'S 1,000 ML IV SCH ×3 (02:03→20:17)
[2022-05-10 07:49] LABS: Hematocrit (blood only) 35.9 % (42.0-52.0); Hemoglobin 12.3 g/dl (14.0-18.0); Mean Corpuscular Hemoglobin 32.5 pg (25.0-34.0); Mean Corpuscular Hgb Conc 34.3 g/dL (32.0-36.0); Mean Platelet Volume 10.6 fL (9.4-12.4); Platelet Count 270 K/uL (130-400); RDW Coefficient of Variation 11.9 % (11.5-14.5); RDW Standard Deviation 41.6 fL (36.4-46.3); Red Blood Count 3.78 M/uL (4.70-6.10); White Blood Count 4.67 K/ul (4.8-10.8)
[2022-05-10 08:09] LABS: BUN Creatinine Ratio 11.4 (10-20); Calcium 9.1 mg/dl (8.5-10.1); Creatinine Clr Calc Pharmacy 107.7 ml/min; Est GFR (African American) 110.5 ml/min; Est GFR (Non-African American) 95.4 ml/min; Potassium 3.7 mmol/L (3.5-5.1)
[2022-05-10] MEDS: INSULIN ASPART PER UNIT SC SCH ×4 (08:31→20:16)
[2022-05-10] MEDS: BUPRENORPHINE/NALOXONE 2/0.5MG 1 TAB PO SCH ×2 (08:38→20:16)
[2022-05-10] MEDS: amLODIPine BESYLATE 5 MG TAB PO SCH (08:38)
[2022-05-10] MEDS: NICOTINE 21 MG/24 HR TDSY TD SCH (08:38)
[2022-05-10] MEDS: hydrALAZINE HCL 20 MG/ML VIAL IV PRN ×2 (10:16→19:37)
--- NOTE | 2022-05-10 11:49 | Psychiatric Progress Note ---
Date of Service May 10, 2022 Impression / Recommendations Impression 56 yo man with a history of alcohol use disorder and opioid use disorder in sustained remission admitted medically. Diagnostically consistent with alcohol use disorder as well as unspecified anxiety likely a combination of substance- induced as well as possible JOSE. Acute risk of self-harm is low given denial of SI and no longer with intoxication. Chronic risk of self-harm and harm to others is slightly increased due to substance use with substance use treatment being the most significant modifiable risk factor to reduce acute and chronic risk. He is agreeable to returning for more residential/rehab substance use treatment once medically stable at a new treatment facility as doesn't want to return to [facility]. (1) Delirium: (2) Alcohol use disorder, severe, dependence: Plan 05/10/2022: -Patient is not an imminent danger to self or others and does not meet criteria for involuntary psychiatric commitment, can leave AMA if he desires -Would discontinue IV ativan if no longer requiring for AWSS scoring; can start Vistaril 25mg TID po prn for anxiety instead -Not avilable in hospital but as outpatient consider starting acamprosate 333mg TID if Cr/renal ok if desired for alcohol use disorder. -Agree with referral for continued rehab/residential alcohol use treatment once medically stable Interval History Identifying Information 56 yo man from [facility] who lives with his significant other with a history of alcohol use and opioid use disorder in sustained remission on suboxone admitted medically for confusion while at [facility] rehab facility. Psychiatry consulted for recommendations. Chief Complaint "I'm good". Review of Systems Notes sleeping and eating well Subjective Subjective Patient was seen & assessed and interval progress reviewed. States his mood is good. Denies SI, HI, AH or VH. A&0x4. Not interested in returning to [facility] for rehab but agreeable to referrals for other residential treatment programs for alcohol use. Had been drinking 1/2 handle of liquor daily up until 5 weeks before going to [facility]. States this was due to stressors including fnancial, having cancer (though better now) and having his identity stolen. Feels these stressors are improving and feels confident about avoiding alcohol use but agrees that some more residential treatment could be helpful. History of anxiety but he doesn't feel he ever drank to self-medicate or cope with anxiety, tried fluoxetine in the past but didn't really help his anxiety. Denies any other significant psychiatric history. Has been on suboxone for past 8 years and working to taper off this as feels he is stable in his recovery from opioid use. Denies any other substance use. Physical Exam Psychiatric Orientation: alert and oriented x 3 Apperance: appropriately dressed and appropriately groomed Eye Contact: good eye contact Motor Behavior: no abnormal motor movements Speech: normal rate/rhythm/volume of speech Affect: euthymic affect Mood: no depressed mood and no anxious mood Thought Process: linear/logical thought process Thought Content: reality based without delusions Suicidal Thoughts: denies suicidal thoughts Homicidal Thoughts: denies homicidal thoughts Hallucinations: no auditory hallucinations and no visual hallucinations Cognition: recent memory grossly intact, remote memory grossly intact, attention grossly intact and language grossly intact Estimated Intelligence: consistent with education level Insight: + fair insight Judgment: + fair judgement Vital Signs (Past 24 Hours) Last Vital Signs Temp 36.8 C 05/10/22 11:20 Pulse 85 05/10/22 11:20 Resp 19 05/10/22 11:20 BP 173/99 H 05/10/22 11:20 Pulse Ox 96 05/10/22 11:20 O2 Del Method Room Air 05/10/22 11:20 Results & Data ([facility]) Laboratory Results Laboratory Results - last 24 hr 05/09/22 05/09/22 05/10/22 16:15 20:01 06:54 WBC 4.67 L RBC 3.78 L Hgb 12.3 L Hct 35.9 L MCV 95.0 MCH 32.5 MCHC 34.3 RDW Std Deviation 41.6 RDW Coeff of Josiah 11.9 Plt Count 270 MPV 10.6 Sodium Potassium Chloride Carbon Dioxide Anion Gap BUN Creatinine Est Cr Clr Drug Dosing Est GFR ( Amer) Est GFR (Non-Af Amer) BUN/Creatinine Ratio Glucose POC Glucose 103 H 108 H Calcium 05/10/22 05/10/22 05/10/22 06:54 07:09 11:16 WBC RBC Hgb Hct MCV MCH MCHC RDW Std Deviation RDW Coeff of Josiah Plt Count MPV Sodium 140 Potassium 3.7 Chloride 107 Carbon Dioxide 29 Anion Gap 4 BUN 10 Creatinine 0.88 Est Cr Clr Drug Dosing 107.7 Est GFR ( Amer) 110.5 Est GFR (Non-Af Amer) 95.4 BUN/Creatinine Ratio 11.4 Glucose 110 H POC Glucose 113 H 112 H Calcium 9.1 Current Inpatient Medications Current Inpatient Medications: Current Inpatient Medications Amlodipine Besylate (Amlodipine Besylate 5 Mg Tab) 5 mg PO QAM [facility] Stop: 06/08/22 08:59 Last Admin: 05/10/22 08:38 Dose: 5 mg Buprenorphine/Naloxone (Buprenorphine/Naloxone 2/0.5mg 1 Tab) 1 tab PO BID ALMA Stop: 06/05/22 08:59 Last Admin: 05/10/22 08:38 Dose: 1 tab Dextrose (Dextrose 50% 50 Ml Syringe) 25 - 50 ml IV UD PRN; Protocol PRN Reason: Hypoglycemia Protocol Stop: 06/04/22 22:18 Enoxaparin Sodium (Enoxaparin Inj 40 Mg/0.4 Ml Syr) 40 mg SQ QPM ALMA Stop: 06/04/22 22:29 Last Admin: 05/09/22 20:00 Dose: 40 mg Glucagon (Glucagon For Inj 1 Mg Vial) 1 mg SQ UD PRN; Protocol PRN Reason: Hypoglycemia Protocol Stop: 06/04/22 22:18 Glucose (Glucose 40% Gel 15 Gm Tube) 15 - 30 gm PO UD PRN; Protocol PRN Reason: Hypoglycemia Protocol Stop: 06/04/22 22:18 Glucose (Glucose 10 Tab/Tube) 4 - 8 tab PO UD PRN; Protocol PRN Reason: Hypoglycemia Treatment Stop: 06/04/22 22:18 Hydralazine HCl (Hydralazine Hcl 20 Mg/Ml Vial) 10 mg IV Q4H PRN PRN Reason: sBP > 160 Stop: 06/04/22 20:40 Last Admin: 05/10/22 10:16 Dose: 10 mg Lactated Ringer's (Lr) 1,000 mls @ 125 mls/hr IV .Q8H [facility] Stop: 06/04/22 20:44 Last Admin: 05/10/22 10:17 Dose: 125 mls/hr Insulin Aspart (Insulin Aspart Per Unit) 0 units SC ACHS [facility] Stop: 06/05/22 16:29 Last Admin: 05/10/22 11:31 Dose: Not Given Labetalol HCl (Labetalol Hcl Iv 5 Mg/Ml 20ml) 10 mg IV Q4H PRN PRN Reason: sBP > 180 or dBP > 110 Stop: 06/04/22 20:40 Lorazepam (Lorazepam 2 Mg/1 Ml Vial) 1 mg IV Q4H PRN PRN Reason: Anxiety/Agitation Stop: 06/04/22 22:46 Last Admin: 05/10/22 08:51 Dose: 1 mg Miscellaneous (Carbohydrates For Hypoglycemia ) 15 - 30 gm PO UD PRN PRN Reason: Hypoglycemia Protocol Stop: 06/04/22 22:18 Miscellaneous (Remove Nicoderm Patch) 1 each N/A DAILY@0859 [facility] Stop: 06/05/22 08:58 Last Admin: 05/10/22 08:38 Dose: Not Given Nicotine (Nicotine 21 Mg/24 Hr Tdsy) 21 mg TD QAM [facility] Stop: 06/05/22 08:59 Last Admin: 05/10/22 08:38 Dose: 21 mg Valsartan (Valsartan 80 Mg Tab) 80 mg PO PM [facility] Stop: 06/05/22 20:59 Last Admin: 05/09/22 20:00 Dose: 80 mg
--- NOTE | 2022-05-10 18:41 | Hospitalist Progress Note ---
Date of Service May 10, 2022 Assessment & Plan (1) Altered mental status: Plan: unsure xact cause, timeline does not make sense unless patient was taking large amount of benzo and went into withdrawal, opiate withdrawal is also a possibility. Less likely alcohol withdrawal given he was transferred from another hospital to [facility] on May 03 although records from this visit are pending ?alternative substance ingestion such as bath salts that does not appear on urine toxicology Could this be iatrogenic. Symptoms improved with benzo Patient was placed on librium taper on 05/06 Patient appears more drowsy today, will taper quicker his librium to 10 mg q12h and end taper in AM of 04/08 05/09-We will continue to monitor patient's mental status which appears to be improving Obtain phone number to the patient's sister as well as his to discuss his long-term placement Also will check Doppler of upper extremity rule out any upper extremity DVT Patient noted to be on subcu Lovenox prophylaxis 05/10-patient mental status continues to be improving His left upper extremity Doppler evaluation did not show any upper extremity DVTs but has superficial phlebitis Continue subcu Lovenox for prophylaxis Multiple discussions with case management as well as patient's and his sister regarding appropriate placement decisions made Patient also discussed with psychiatry today and wants to pursue rehab but also wants to think about it as well regarding the exact location We will discuss with case management regarding this along with family. (2) Encephalopathy, hypertensive: Plan: Stop nicardipine as infusion cannot be given outside of the ICU. Will give labetalol 10mg IV repeated doses until controlled. Hydralazine q4h 10mg PRN for sBP > 180 or sBP > 110 BP better controlled (3) Hypertension: Plan: Reportedly on valsartan 80 mg p.o. daily. Currently will hold in favor of shorter acting intravenous medications as above for hypertensive encephalopathy. (4) Alcoholism, chronic: (5) Anxiety and depression: Plan: Hold Lexapro pending improvement in mental status. Low suspicion of serotonin syndrome on current medication. will consult psych. (6) Chronic prescription opiate use: Plan: Suboxone listed on outpatient medications. Unclear history of this but appears to have been reduced in February per PDMP.. Erythrasma Placed on clarithromycin 1 gr one dose on 05/06 Plan VTE prophylaxis -Lovenox 40 mg subcu daily Disposition -admit to PCU Admission and Anticipated Discharge Date Admission Date: May 05, 2022 Subjective Patient reports improvement in his left arm discomfort Concerns regarding long-term placement discussed with patient Per patient discussed with psychiatry and has not decided about whether he wants to go to rehab yet Physical Exam Physical Exam: Head and ENT no thyroid enlargement trachea midline Cardiovascular S1-S2 are normal no S3 Lungs bilateral air entry fair no wheezing Abdomen soft nondistended positive bowel sounds no rebound tenderness Extremity shows trace edema Left upper extremity swelling with erythema and warmth reducing Neurologically no focal deficits occasional tremors Skin shows no rash no cyanosis Results & Data Results & Data ([facility]) Vital Signs (Past 12 Hours) Vital Signs Temp Pulse Resp BP BP Pulse Ox O2 Del Method 05/10/22 15:28 36.9 C 83 18 170/94 H 97 Room Air 05/10/22 11:20 36.8 C 85 19 173/99 H 96 Room Air 05/10/22 10:06 168/91 H 05/10/22 07:55 36.8 C 88 18 180/85 H 95 Room Air PG Care Time/CCT Total # of Minutes Spent Total Time Spent with Patient: Total time spent is greater than 50% in coordination of care (as documented) at patient's floor/unit and/or counseling patient: Coding Level of Care Code 83594 SUB INP/OBS CARE 2/35MIN Diagnoses Altered mental status R41.82 Encephalopathy, hypertensive I67.4 Hypertension I10 Alcoholism, chronic F10.20 Anxiety and depression F41.9; F32.A Chronic prescription opiate use Z79.891
[2022-05-10] MEDS: VALSARTAN 80 MG TAB PO SCH (20:16)
[2022-05-10] MEDS: ENOXAPARIN INJ 40 MG/0.4 ML SYR SQ SCH (20:16)
[2022-05-11] MEDS: LACTATED RINGER'S 1,000 ML IV SCH (04:52)
[2022-05-11 07:49] LABS: Hemoglobin 12.7 g/dl (14.0-18.0); Mean Corpuscular Hemoglobin 32.6 pg (25.0-34.0); Mean Corpuscular Hgb Conc 34.3 g/dL (32.0-36.0); Mean Corpuscular Volume 95.1 fL (80.0-100.0); Mean Platelet Volume 10.3 fL (9.4-12.4); Platelet Count 287 K/uL (130-400); RDW Coefficient of Variation 12.2 % (11.5-14.5); RDW Standard Deviation 42.8 fL (36.4-46.3); Red Blood Count 3.89 M/uL (4.70-6.10); White Blood Count 4.82 K/ul (4.8-10.8)
[2022-05-11 07:57] LABS: BUN Creatinine Ratio 12.5 (10-20); Calcium 9.1 mg/dl (8.5-10.1); Creatinine Clr Calc Pharmacy 118.4 ml/min; Est GFR (African American) 114.9 ml/min; Est GFR (Non-African American) 99.2 ml/min; Potassium 3.7 mmol/L (3.5-5.1)
[2022-05-11] MEDS: INSULIN ASPART PER UNIT SC SCH ×4 (08:14→21:39)
[2022-05-11] MEDS: BUPRENORPHINE/NALOXONE 2/0.5MG 1 TAB PO SCH ×2 (08:32→20:36)
[2022-05-11] MEDS: amLODIPine BESYLATE 5 MG TAB PO SCH (08:32)
[2022-05-11] MEDS: NICOTINE 21 MG/24 HR TDSY TD SCH (08:33)
--- NOTE | 2022-05-11 15:39 | Hospitalist Progress Note ---
Date of Service May 11, 2022 Assessment & Plan (1) Altered mental status: Plan: unsure xact cause, timeline does not make sense unless patient was taking large amount of benzo and went into withdrawal, opiate withdrawal is also a possibility. Less likely alcohol withdrawal given he was transferred from another hospital to [facility] on May 03 although records from this visit are pending ?alternative substance ingestion such as bath salts that does not appear on urine toxicology Could this be iatrogenic. Symptoms improved with benzo Patient was placed on librium taper on 05/06 Patient appears more drowsy today, will taper quicker his librium to 10 mg q12h and end taper in AM of 04/08 05/09-We will continue to monitor patient's mental status which appears to be improving Obtain phone number to the patient's sister as well as his to discuss his long-term placement Also will check Doppler of upper extremity rule out any upper extremity DVT Patient noted to be on subcu Lovenox prophylaxis 05/10-patient mental status continues to be improving His left upper extremity Doppler evaluation did not show any upper extremity DVTs but has superficial phlebitis Continue subcu Lovenox for prophylaxis Multiple discussions with case management as well as patient's and his sister regarding appropriate placement decisions made Patient also discussed with psychiatry today and wants to pursue rehab but also wants to think about it as well regarding the exact location We will discuss with case management regarding this along with family. 05/11-complicated placement issues as patient as well as family(including his and sister have different inputs) Appreciate psychiatry help Patient will be started on hydroxyzine as needed Case management to assist with final rehab placement patient can be discharged over the next 24 to 48 hours (2) Encephalopathy, hypertensive: Plan: Stop nicardipine as infusion cannot be given outside of the ICU. Will give labetalol 10mg IV repeated doses until controlled. Hydralazine q4h 10mg PRN for sBP > 180 or sBP > 110 BP better controlled (3) Hypertension: Plan: Reportedly on valsartan 80 mg p.o. daily. Currently will hold in favor of shorter acting intravenous medications as above for hypertensive encephalopathy. (4) Alcoholism, chronic: (5) Anxiety and depression: Plan: Hold Lexapro pending improvement in mental status. Low suspicion of serotonin syndrome on current medication. will consult psych. (6) Chronic prescription opiate use: Plan: Suboxone listed on outpatient medications. Unclear history of this but appears to have been reduced in February per PDMP.. Erythrasma Placed on clarithromycin 1 gr one dose on 05/06 Plan VTE prophylaxis -Lovenox 40 mg subcu daily Disposition -admit to PCU Admission and Anticipated Discharge Date Admission Date: May 05, 2022 Subjective Patient reports continued improvement in his left arm swelling and patient reports no discomfort today Concerns regarding long-term placement discussed with patient again Patient wants to go to rehab and wants to talk to case management regarding the place close to [facility] Physical Exam Physical Exam: Head and ENT no thyroid enlargement trachea midline Cardiovascular S1-S2 are normal no S3 Lungs bilateral air entry fair no wheezing Abdomen soft nondistended positive bowel sounds no rebound tenderness Extremity shows trace edema Left upper extremity swelling with erythema and warmth reducing and improving Neurologically no focal deficits occasional tremors Skin shows no rash no cyanosis Results & Data Results & Data ([facility]) Vital Signs (Past 12 Hours) Vital Signs Temp Pulse Pulse Resp BP Pulse Ox O2 Del Method 05/11/22 15:07 36.8 C 73 18 154/89 H 93 Room Air 05/11/22 12:06 37.0 C 91 H 18 164/100 H 95 Room Air 05/11/22 07:55 37.1 C 88 18 155/92 H 96 Room Air PG Care Time/CCT Total # of Minutes Spent Total Time Spent with Patient: Total time spent is greater than 50% in coordination of care (as documented) at patient's floor/unit and/or counseling patient: Coding Level of Care Code 57720 SUB INP/OBS CARE 2/35MIN Diagnoses Altered mental status R41.82 Encephalopathy, hypertensive I67.4 Hypertension I10 Alcoholism, chronic F10.20 Anxiety and depression F41.9; F32.A Chronic prescription opiate use Z79.891
[2022-05-11] MEDS: hydrALAZINE HCL 20 MG/ML VIAL IV PRN (18:04)
[2022-05-11] MEDS: VALSARTAN 80 MG TAB PO SCH (20:36)
[2022-05-11] MEDS: ENOXAPARIN INJ 40 MG/0.4 ML SYR SQ SCH (20:36)
[2022-05-11] MEDS: LORazepam 2 MG/1 ML VIAL IV PRN (20:41)
[2022-05-12 07:55] LABS: Hematocrit (blood only) 38.5 % (42.0-52.0); Hemoglobin 13.1 g/dl (14.0-18.0); Mean Corpuscular Hemoglobin 32.6 pg (25.0-34.0); Mean Corpuscular Volume 95.8 fL (80.0-100.0); Mean Platelet Volume 10.6 fL (9.4-12.4); Platelet Count 327 K/uL (130-400); RDW Coefficient of Variation 12.2 % (11.5-14.5); RDW Standard Deviation 43.5 fL (36.4-46.3); Red Blood Count 4.02 M/uL (4.70-6.10); White Blood Count 5.44 K/ul (4.8-10.8)
[2022-05-12 08:11] LABS: BUN Creatinine Ratio 11.7 (10-20); Calcium 9.2 mg/dl (8.5-10.1); Creatinine Clr Calc Pharmacy 100.8 ml/min; Est GFR (African American) 103.9 ml/min; Est GFR (Non-African American) 89.6 ml/min; Potassium 4.3 mmol/L (3.5-5.1)
[2022-05-12] MEDS: INSULIN ASPART PER UNIT SC SCH ×4 (08:38→21:00)
[2022-05-12] MEDS: amLODIPine BESYLATE 5 MG TAB PO SCH (08:38)
[2022-05-12] MEDS: BUPRENORPHINE/NALOXONE 2/0.5MG 1 TAB PO SCH ×2 (08:39→20:25)
[2022-05-12] MEDS: NICOTINE 21 MG/24 HR TDSY TD SCH (08:39)
[2022-05-12] MEDS: hydrOXYzine HCl 25 MG TAB PO PRN ×2 (09:57→20:25)
--- NOTE | 2022-05-12 15:53 | Hospitalist Progress Note ---
Date of Service May 12, 2022 Assessment & Plan (1) Altered mental status: Plan: Unsure of exact etiology of acute encephalopathy timeline does not make sense unless patient was taking large amount of benzo and went into withdrawal, unless he had access to some sort of benzodiazepines or was drinking alcohol at the rehab? opiate withdrawal is also a possibility but would not cause hypertensive urgency and confusion. Less likely alcohol withdrawal given he was transferred from another hospital to [facility] on May 03 ?alternative substance ingestion such as bath salts that does not appear on urine toxicology Could this be iatrogenic. Symptoms improved with benzo Patient was placed on librium taper on 05/06 and has now completed this He has been taking as needed lorazepam at least a couple of times a day- discontinue IV lorazepam and give p.o. lorazepam 0.5 Mg p.o. twice daily as needed -Give hydroxyzine as needed for anxiety Appreciate psychiatric consultation Overall, he is much improved and encephalopathy has resolved (2) Encephalopathy, hypertensive: Plan: Initially with hypertensive urgency and confusion Was on a nicardipine infusion and received IV labetalol-blood pressures are now much improved This also could have been secondary to alcohol or benzodiazepine withdrawal Hydralazine q4h 10mg PRN for sBP > 180 or sBP > 110 BP better controlled on p.o. valsartan and amlodipine (3) Hypertension: Plan: As above, now on amlodipine and valsartan (4) Alcoholism, chronic: Plan: Needs to return to alcohol dependence/use disorder program after discharge Restart home thiamine, folate, and multivitamin (5) Anxiety and depression: Plan: Is apparently on Lexapro prior to admission which has been held We will discuss with psychiatry to see if needs to be restarted (6) Chronic prescription opiate use: Plan: Continue home Suboxone listed on outpatient medications. Unclear history of this but appears to have been reduced in February per PDMP.. Erythrasma Placed on clarithromycin 1 gr one dose on 05/06 Plan VTE prophylaxis -Lovenox 40 mg subcu daily Disposition -medically stable for discharge, awaiting placement at alcohol dependence program as an inpatient Discussed care with case aide Admission and Anticipated Discharge Date Admission Date: May 05, 2022 Subjective Patient was having some anxiety this morning but improved with hydroxyzine. Otherwise, he denies chest pains or shortness of breath, nausea or lightheadedness. He is ambulating the halls when I saw him. He reports he spoke with the case aide and has some rehab places that he is interested in going to. He is eating and drinking well, moving his bowels and urinating without difficulty. Review of Systems Review of Systems: All systems reviewed & are unremarkable except as noted in HPI & below Physical Exam Constitutional: WD/WN, vitals as above Eyes: + anicteric sclerae Respiratory: normal respiratory effort, lungs clear to auscultation Cardiovascular: RRR, no murmur, no edema Gastrointestinal (Abdomen): normal bowel sounds, soft, nontender, no hepatosplenomegaly Skin: no rashes, warm and dry Neurologic: PERRL, EOMI, accommodation nl, no face palsy, no dysarthria G ait: no ataxic gait Psychiatric: A+Ox3, euthymic affect Results & Data Results & Data ([facility]) Vital Signs (Past 12 Hours) Vital Signs Temp Pulse Resp BP Pulse Ox O2 Del Method 05/12/22 15:03 36.7 C 84 16 134/78 97 Room Air 05/12/22 07:26 37 C 83 16 153/71 H 97 Room Air Laboratory Results CBC and BMP reviewed PG Care Time/CCT Total # of Minutes Spent Total Time Spent with Patient: Total time spent is greater than 50% in coordination of care (as documented) at patient's floor/unit and/or counseling patient: Coding Level of Care Code 97338 SUB INP/OBS CARE 1/25MIN Diagnoses Altered mental status R41.82 Encephalopathy, hypertensive I67.4 Hypertension I10 Alcoholism, chronic F10.20 Anxiety and depression F41.9; F32.A Chronic prescription opiate use Z79.891
[2022-05-12] MEDS: THIAMINE HCL 100 MG TAB PO SCH (17:21)
[2022-05-12] MEDS: LORazepam 0.5 MG TAB PO PRN (17:21)
[2022-05-12] MEDS: VALSARTAN 80 MG TAB PO SCH (20:25)
[2022-05-12] MEDS: ENOXAPARIN INJ 40 MG/0.4 ML SYR SQ SCH (20:25)
[2022-05-13] MEDS ORDERED: FOLIC ACID 1 MG TAB PO SCH (09:00)
[2022-05-13] MEDS ORDERED: ESCITALOPRAM OXALATE 10 MG TAB PO SCH (09:00)
[2022-05-13] MEDS ORDERED: MULTIVITAMIN TAB PO SCH (09:00)
[2022-05-13] MEDS: INSULIN ASPART PER UNIT SC SCH ×2 (09:35→12:34)
[2022-05-13] MEDS: amLODIPine BESYLATE 5 MG TAB PO SCH (09:37)
[2022-05-13] MEDS: THIAMINE HCL 100 MG TAB PO SCH (09:37)
[2022-05-13] MEDS: NICOTINE 21 MG/24 HR TDSY TD SCH (09:37)
[2022-05-13] MEDS: BUPRENORPHINE/NALOXONE 2/0.5MG 1 TAB PO SCH (09:48)
[2022-05-13] MEDS: LORazepam 0.5 MG TAB PO PRN (11:20)
--- NOTE | 2022-05-13 14:18 | Discharge Summary ---
Date of Service May 13, 2022 Admission HPI Per Admitting Provider Julio Ruelas is a 56 year old male who was at alcohol rehabilitation at [facility] alcohol rehabilitation presents to the ER due to change in mental status and hallucinations. Unable to get any significant history from the patient due to his current altered mental status. Discussed care with Keiry Abdi LPN @ [facility]. Reportedly he was admitted to [facility] on May 03 from a hospital in [facility] although unclear if he went through withdrawal there. His last drink was 3 weeks ago and he was drinking 2 pints of alcohol a day. Alcohol breathalyzer test on admission was negative. The physician this morning noticed he was significantly different from his admission where he was tense, off balance with abdominal spasms. More confused and restless. Blood pressure 170/100, heart rate 112. He was therefore sent to the ER for further evaluation. In the ER he appears to be having visual hallucinations and is extremely confused moving around in bed. Due to unclear history he was treated for alcohol withdrawal with lorazepam which appeared to help with his anxiety. His blood pressure was elevated up to 219/130. He was given hydralazine 10 mg IV for this and started on a nicardipine drip. He is referred to medicine for admission ongoing management of alcohol withdrawal and hypertensive encephalopathy. Principal Diagnosis Suspected benzodiazepine withdrawal, acute encephalopathy Hypertensive urgency Discharge Exam Constitutional WD/WN, vitals as above Eyes + anicteric sclerae Respiratory normal respiratory effort, lungs clear to auscultation Cardiovascular RRR, no murmur, no edema Gastrointestinal (Abdomen) normal bowel sounds, soft, nontender, no hepatosplenomegaly Skin no rashes, warm and dry Neurologic PERRL, EOMI, accommodation nl, no face palsy, no dysarthria Gait: no ataxic gait Psychiatric Orientation: alert, oriented x 3 and cooperative Affect: + anxious affect Discharge Data Allergies Allergy/AdvReac Type Severity Reaction Status Date / Time latex Allergy Unknown Verified 05/05/22 17:51 Penicillins Allergy Unknown Verified 05/05/22 17:51 Ordered Studies 05/05/22 13:04 CT abd pelvis wo con Stat CT head/brain wo con Stat 05/08/22 09:26 US doppler renal [US duplex renal artery] Routine 05/09/22 17:53 US venous doppler UE LT Urgent Diabetes Follow up Diabetes Follow-up Needed for Newly Diagnosed Diabetes Hospital Course (1) Altered mental status: Unsure of exact etiology of acute encephalopathy timeline does not make sense unless patient was taking large amount of benzo and went into withdrawal, unless he had access to some sort of benzodiazepines or was drinking alcohol at the rehab? opiate withdrawal is also a possibility but would not cause hypertensive urgency and confusion. Less likely alcohol withdrawal given he was transferred from another hospital to [facility] on May 03 ?alternative substance ingestion such as bath salts that does not appear on urine toxicology Symptoms improved with benzo and therefore most likely was secondary to benzodiazepine withdrawal Patient was placed on librium taper on 05/06 and has now completed this He has been taking as needed lorazepam at least a couple of times a day-can continue to give p.o. lorazepam 0.5 Mg p.o. twice daily as needed for a few more days but would discontinue after that -Give hydroxyzine as needed for anxiety Appreciate psychiatric consultation Overall, he is much improved and encephalopathy has resolved (2) Encephalopathy, hypertensive: Initially with hypertensive urgency and confusion Was on a nicardipine infusion and received IV labetalol-blood pressures are now much improved This also could have been secondary to alcohol or benzodiazepine withdrawal BP better controlled on p.o. valsartan and amlodipine Also advised ongoing low-sodium diet, smoking cessation (3) Hypertension: As above, now on amlodipine and valsartan (4) Alcoholism, chronic: Needs to return to alcohol dependence/use disorder program after discharge Continue thiamine, folate, and multivitamin (5) Anxiety and depression: Is apparently on Lexapro prior to admission which has been held Restarted Lexapro prior to discharge Started hydroxyzine as needed Needs follow-up with outpatient psychiatry (6) Chronic prescription opiate use: Continue home Suboxone listed on outpatient medications. Unclear history of this but appears to have been reduced in February per PDMP.. Erythrasma Placed on clarithromycin 1 gr one dose on 05/06 (7) Diabetes mellitus, type 2: Recently diagnosed at outside hospital Continue metformin Follow-up with PCP after discharge (8) Tobacco abuse: Continued to encourage smoking cessation after discharge Continue nicotine patch (9) Aneurysm of descending thoracic aorta without rupture: Noted to have 3 cm descending thoracic aortic aneurysm on outside CT scan Needs outpatient follow-up with PCP and/or vascular surgery Encouraged smoking cessation, blood pressure control Superficial thrombophlebitis of the left basilic vein-healing, no treatment needed with blood thinners Plan VTE prophylaxis -Lovenox 40 mg subcu daily was provided Disposition -medically stable for discharge, discharged to alcohol dependence program as an inpatient today Discussed care with rehabilitation caseworker and sister on the phone with his permission Total Time Total Time Spent Total Time Spent (In Minutes): 35 minutes Discharge Plan Discharge Items Patient Disposition: Drug & Alcohol Rehab Reason For Visit: HYPERTENSIVE ENCEPHALOPATHY Discharge Diagnosis: Hypertensive urgency, suspected benzodiazepine withdrawal Left arm superficial thrombophlebitis Condition on Discharge: Good Activity: Resume your previous activity Non-emergency contact: Primary Care Provider Call non-emergency contact if: you have any medication questions and your symptoms worsen Follow-up/Referrals: PCP,NO [Primary Care Provider] - (Follow up with a PCP within 1 week of discharge from the rehab facility.) Diet: Carb Consistent or DM2 and Heart Healthy Addtl Attending Provider Instructions: You were treated with a taper of Librium and then as needed lorazepam for your withdrawal symptoms. You were started on blood pressure medications as well. It is important that you continue on these blood pressure medications and follow up with a PCP. You were incidentally found to have coronary artery calcifications and a descending thoracic aortic aneurysm on a CT scan from an outside hospital that will require follow up with your PCP. It is recommended that you continue to abstain from smoking cigarettes as well. You were also recently diagnosed with diabetes and should start on a medication called metformin for this. You can continue the Lexapro for your anxiety and take hydroxyzine as needed for anxiety. Pending Studies at Discharge: No Stand-Alone Forms: My [facility] Skilled Items Patient informed of condition?: Yes DNR: No Discharge Level of Care: Other Communicable Disease: No Discharge Prognosis: Improving Lines: None Urinary Catheter: No Medications and DC Order Prescriptions: New amlodipine [Norvasc] 5 mg Tablet 5 mg PO QAM Qty: 30 0RF nicotine [Nicoderm CQ] 21 mg/24 hr Patch 24 Hour 21 mg transdermal QAM Qty: 14 0RF lorazepam 0.5 mg Tablet 0.5 mg PO Q12H PRN (Reason: anxiety) Qty: 10 0RF Continued buprenorphine-naloxone 2-0.5 mg film 1 film sublingual BID multivitamin Tablet 1 tab PO DAILY Qty: 30 0RF cyanocobalamin (vitamin B-12) [Vitamin B-12] 1,000 mcg Tablet 1,000 mcg PO DAILY Qty: 30 0RF thiamine HCl (vitamin B1) 100 mg Tablet 100 mg PO DAILY Qty: 30 0RF hydroxyzine pamoate [Vistaril] 50 mg Capsule 50 mg PO TID PRN (Reason: anxiety) Qty: 30 0RF folic acid 1 mg tablet 1 mg PO DAILY Qty: 30 0RF escitalopram oxalate [Lexapro] 10 mg Tablet 10 mg PO DAILY Qty: 30 0RF Changed metformin 500 mg tablet 500 mg PO BID Qty: 60 0RF Rx Instructions: TAKE 500 MG FOR 7 DAYS, Apr - . THEN WILL GO TO 500 MG BID valsartan 80 mg tablet 80 mg PO QPM Qty: 30 0RF Discontinued clonidine HCl 0.1 mg tablet 0.1 mg PO TID PRN (Reason: .LOS) Rx Instructions: ANXIETY/RESTLESSNESS HR>/=70 & BP > 100/70 naltrexone 50 mg tablet 50 mg PO DAILY diazepam [Valium] 5 mg Tablet 5 mg PO .NOW Discharge Orders: Discharge Order (Routine); Ordered 05/13/22 Ordered By: Nilsa Lazo/Other Patient Handouts: Type 2 Diabetes Admission Data Admit Date/Time: 05/05/22 17:35 Attending Provider: Nilsa Dhillon Admit Provider: Rob Rodriguez Primary Care Provider: PCP,NO Other Interventions: Discharge Summary Assessment (RN) Last Done: 05/13/22 13:23 Coding Level of Care Code HOSP INP/OBS DISCH >30 MIN Diagnoses Altered mental status R41.82 Encephalopathy, hypertensive I67.4 Hypertension I10 Alcoholism, chronic F10.20 Anxiety and depression F41.9; F32.A Chronic prescription opiate use Z79.891 Diabetes mellitus, type 2 E11.9 Tobacco abuse Z72.0 Aneurysm of descending thoracic aorta without rupture I71.23
[2022-05-13 17:41] LABS: Creatinine, Random Urine 125 mg/dL (20-320); Total Metanephrine 252 mcg/g cr (149-603)
[2022-05-14 17:52] LABS: Metanephrine, Plasma <25 pg/mL (<=57); Normetanephrine Plasma 61 pg/mL (<=148); Total Metanephrine Plasma 61 pg/mL (<=205)
== END 2022-05-13 14:35 | disposition alcohol treatment (31) | DRG 897 ==
LOC: ED 12:35 → 2S 17:35 → SUATTDRO 17:35 → 2S 18:54 → 3N 05-11 17:42